=== PATIENT | female | born 1975 | race Caucasian/White ===

== ENCOUNTER 2017-08-12 17:20 | Observation (INO) ==
[2017-08-12] MEDS ORDERED: methylPREDNISolone 125 MG/2 ML VIAL IVP ONE (17:59)
[2017-08-12] MEDS ORDERED: Ipratropium/Albuterol Neb 3 ML IH ONE (17:59)
--- NOTE | 2017-08-12 18:02 | Emergency Department Note ---
Disposition Clinical Impression: Chest pain Qualifiers: Chest pain type: unspecified Qualified Code(s): R07.9 - Chest pain, unspecified COPD (chronic obstructive pulmonary disease) Qualifiers: COPD type: unspecified COPD Qualified Code(s): J44.9 - Chronic obstructive pulmonary disease, unspecified Disposition: Still a Patient Referrals: Lita Rojas [Primary Care Provider] - Forms: ED Satisfaction Letter General Adult HPI - General Chief complaint: ED Upper Respiratory Infection Stated complaint: URI symptoms since friday Time Seen by Provider: 08/12/17 17:31 Source: patient Mode of arrival: ambulatory Limitations: no limitations Nursing Notes Reviewed: Yes Vital Signs Reviewed: Yes - History of Present Illness HPI Narrative: 41-year-old who has a history DVT and COPD with cough congestion states she has also had pain across the top of her chest. Patient is on Coumadin though blood thinner. Patient presents now for evaluation. Pt Subjective Complaint: Chest pain dyspnea Onset (ago): day(s) Location: chest Radiation: non-radiation Pain Severity: moderate Pain Scale: 8 Improves with: nothing Associated symptoms: Reports: chest pain, cough, fever/chills - Related Data Home Medications Medication Instructions Recorded Confirmed Cyanocobalamin (Vitamin B-12) 1,000 mcg PO DAILY 10/09/15 03/04/16 [Vitamin B-12] Iron Ps Cmplx/Vit B12/FA 1 cap PO DAILY 03/03/16 03/04/16 [Poly-Iron 150 Forte Capsule] Tizanidine HCl 4 mg PO Q8H PRN 03/04/16 03/04/16 Warfarin [Coumadin] 3.5 mg PO Q48H 03/04/16 03/04/16 Warfarin [Coumadin] 4 mg PO Q48H 03/04/16 03/04/16 Previous Rx's Medication Instructions Recorded Omeprazole 20 mg PO DAILY #30 tablet. 10/11/15 Acetaminophen [Tylenol] 500 mg PO Q6HR PRN #20 tablet 12/27/16 Cyclobenzaprine [Flexeril] 10 mg PO TID PRN #15 tablet 12/27/16 Lidocaine Patch [Lidoderm 5% patch] 1 each TP DAILY PRN #14 adh..patch 12/27/16 Guaifenesin [Mucinex] 600 mg PO BID #30 tab.er.12h 03/13/17 Ipratropium/Albuterol Neb [Duoneb] 3 ml IH Q6HR #30 vial.neb 03/13/17 Nebulizer [Aeroeclipse] 1 each MC Q6HR #1 each 03/13/17 levoFLOXacin [Levaquin] 750 mg PO DAILY #7 tablet 03/13/17 Allergies Allergy/AdvReac Type Severity Reaction Status Date / Time doxycycline Allergy Hives Verified 08/12/17 17:24 Sulfa (Sulfonamide Allergy Hives Verified 08/12/17 17:24 Antibiotics) tramadol Allergy Hives Verified 08/12/17 17:24 All systems ED: reviewed and negative except as stated. Constitutional: Denies: fever, chills, weakness, weight change Eyes: Denies: eye pain, eye discharge, vision change ENT ED: Denies: ear pain, throat pain, dental pain, hearing loss, epistaxis, congestion, dysphagia Cardiovascular: Reports: chest pain. Denies: palpitations, dyspnea on exertion , edema, syncope Respiratory: Reports: cough, dyspnea. Denies: wheezes, hemoptysis, stridor Gastrointestinal: Denies: abdominal pain, nausea, vomiting, diarrhea, constipation, hematemesis, melena, hematochezia Genitourinary: Denies: dysuria, frequency, hematuria, discharge Musculoskeletal: Denies: back pain, neck pain, arthralgia, myalgia Integumentary: Denies: rash, abrasion, lesions Neurological: Denies: headache, weakness, numbness, paresthesias, confusion, abnormal gait, vertigo Psychiatric: Denies: anxiety, depression, suicidal thoughts, homicidal thoughts , auditory hallucinations, visual hallucinations Endocrine: Denies: fatigue Hematological/Lymphatic: Denies: easy bleeding, easy bruising Allergic/Immunologic: Denies: facial swelling, urticaria Past Medical History - Past Medical History Medical history: Reports: COPD, DVT, fibromyalgia Surgical history: Reports: other Psychiatric history: Reports: anxiety, depression 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 - Social History Smoking Status: Current every day smoker Smokeless Tobacco Status: No Alcohol use: Reports: none Drug use: Reports: marijuana Physical Exam - General Limitations: no limitations General appearance: alert, in no apparent distress - Head Head exam: atraumatic, normocephalic, normal inspection - Eye Eye exam: Present: normal appearance, PERRL, EOMI - ENT ENT exam: normal exam, normal oropharynx, mucous membranes moist - Neck Neck exam: Present: normal inspection, full ROM, trachea midline Course Vital Signs Temperature 97.6 F 08/12/17 17:21 Pulse Rate 113 08/12/17 17:21 Respiratory Rate 16 08/12/17 17:21 Blood Pressure 123/87 08/12/17 17:21 O2 Sat by Pulse Oximetry 96 08/12/17 17:21 Temperature 97.6 F 08/12/17 17:21 Pulse Rate 113 08/12/17 17:21 Respiratory Rate 16 08/12/17 17:21 Blood Pressure 123/87 08/12/17 17:21 O2 Sat by Pulse Oximetry 96 08/12/17 17:21 Oxygen Delivery Oxygen Delivery Room Air S.B.A.R. - S.B.A.R. Recommendation: Recommendation based on pending studies, treatments, or consults S.B.A.RVanda Report Given to: Dr. Nicole Colorado[place]um Repor Time: 19:00
[2017-08-12 18:30] LABS: Basophils % 0.3 %; Eosinophils # 0.2 K/mcL (0.0-0.6); Hemoglobin 12.4 g/dL (11.5-15.4); Immature Granulocytes % 0.2 % (0-4); Lymphocytes # 1.3 K/mcL (0.6-4.6); Lymphocytes % 19.9 %; Mean Corpuscular HGB Conc 33.5 g/dL (31.6-35.5); Mean Corpuscular Hemoglobin 33.3 pg (28.0-33.3); Mean Corpuscular Volume 99.5 fL (83.0-100.0); Mean Platelet Volume 8.7 fL (9.4-12.4); Monocytes # 0.4 K/mcL (0.0-1.3); Monocytes % 6.5 %; Neutrophils # 4.4 K/mcL (1.6-8.9); Platelet Count 278 K/mcL (140-400); Red Blood Count 3.72 M/mcL (3.82-4.97); Red Cell Distribution Width 14.2 % (11.5-14.5); Segmented Neutrophils % 70.1 %
[2017-08-12] MEDS ORDERED: cefTRIAXone 1,000 MG in Water for inj. (sterile) 20 ML 10 ML IVP ONE (19:14)
[2017-08-12 20:02] LABS: BUN/Creatinine Ratio 9 (6-26); Blood Urea Nitrogen 5 mg/dL (6-20); Calcium 8.5 mg/dL (8.6-10.3); Carbon Dioxide 23 mEq/L (23-29); Chloride 104 mEq/L (98-107); Glucose 115 mg/dL (70-105); Osmolality,Calculated 274 (280-300); Potassium 4.1 mEq/L (3.5-5.1); Sodium 133 mEq/L (136-145); eGFR For African Americans > 60 (> 60); eGFR For Non-African Americans > 60 (> 60)
[2017-08-12] MEDS ORDERED: 0.9 % Sodium Chloride 1,000 ML IVC ONE (20:39)
[2017-08-12] MEDS ORDERED: Azithromycin 500 MG in D5% in Water 250 ML IVPB ONE (20:39)
[2017-08-12] MEDS ORDERED: *HR* Warfarin 3 MG TABLET PO ONE (20:40)
--- NOTE | 2017-08-12 20:44 | Emergency Department Note ---
Disposition Clinical Impression: Multifocal pneumonia Chest pain Qualifiers: Chest pain type: unspecified Qualified Code(s): R07.9 - Chest pain, unspecified COPD (chronic obstructive pulmonary disease) Qualifiers: COPD type: unspecified COPD Qualified Code(s): J44.9 - Chronic obstructive pulmonary disease, unspecified Disposition: Admitted As Inpatient Condition: Undetermined Referrals: Lita Rojas [Primary Care Provider] - Forms: ED Satisfaction Letter Time of Disposition: 20:49 General Adult HPI - General Chief complaint: ED Upper Respiratory Infection Stated complaint: URI symptoms since friday Time Seen by Provider: 08/12/17 17:31 Source: patient Mode of arrival: ambulatory Limitations: no limitations Nursing Notes Reviewed: Yes Vital Signs Reviewed: Yes - History of Present Illness HPI Narrative: 41-year-old female with history of DVT on warfarin, history of COPD, arrives to the emergency department complaining of shortness of breath and upper respiratory infection like symptoms. This patient was a sign out from the day team. The patient was noted to have a left lower lobe pneumonia on chest x- ray. A CTA of the chest and treated no pulmonary embolism but does note multifocal pneumonia with tree in blood appearance. The patient was mildly hypoxic and was dyspneic. After discussion with the patient, we will admit the patient to the hospital with administration of azithromycin and Rocephin. The patient made aware and agrees to plan. No further questions or concerns at this time. Location: chest Pain Scale: 0 Improves with: nothing Associated symptoms: Reports: chest pain, cough, fever/chills - Related Data Home Medications Medication Instructions Recorded Confirmed Cyanocobalamin (Vitamin B-12) 1,000 mcg PO DAILY 10/09/15 03/04/16 [Vitamin B-12] Iron Ps Cmplx/Vit B12/FA 1 cap PO DAILY 03/03/16 03/04/16 [Poly-Iron 150 Forte Capsule] Tizanidine HCl 4 mg PO Q8H PRN 03/04/16 03/04/16 Warfarin [Coumadin] 3.5 mg PO Q48H 03/04/16 03/04/16 Warfarin [Coumadin] 4 mg PO Q48H 03/04/16 03/04/16 Previous Rx's Medication Instructions Recorded Omeprazole 20 mg PO DAILY #30 tablet. 10/11/15 Acetaminophen [Tylenol] 500 mg PO Q6HR PRN #20 tablet 12/27/16 Cyclobenzaprine [Flexeril] 10 mg PO TID PRN #15 tablet 12/27/16 Lidocaine Patch [Lidoderm 5% patch] 1 each TP DAILY PRN #14 adh..patch 12/27/16 Guaifenesin [Mucinex] 600 mg PO BID #30 tab.er.12h 03/13/17 Ipratropium/Albuterol Neb [Duoneb] 3 ml IH Q6HR #30 vial.neb 03/13/17 Nebulizer [Aeroeclipse] 1 each MC Q6HR #1 each 03/13/17 levoFLOXacin [Levaquin] 750 mg PO DAILY #7 tablet 03/13/17 Allergies Allergy/AdvReac Type Severity Reaction Status Date / Time doxycycline Allergy Hives Verified 08/12/17 17:24 Sulfa (Sulfonamide Allergy Hives Verified 08/12/17 17:24 Antibiotics) tramadol Allergy Hives Verified 08/12/17 17:24 All systems ED: reviewed and negative except as stated. Constitutional: Denies: fever, chills, weakness, weight change Eyes: Denies: eye pain, eye discharge, vision change ENT ED: Denies: ear pain, throat pain, dental pain, hearing loss, epistaxis, congestion, dysphagia Cardiovascular: Reports: chest pain. Denies: palpitations, dyspnea on exertion , edema, syncope Respiratory: Reports: cough, dyspnea. Denies: wheezes, hemoptysis, stridor Gastrointestinal: Denies: abdominal pain, nausea, vomiting, diarrhea, constipation, hematemesis, melena, hematochezia Genitourinary: Denies: dysuria, frequency, hematuria, discharge Musculoskeletal: Denies: back pain, neck pain, arthralgia, myalgia Integumentary: Denies: rash, abrasion, lesions Neurological: Denies: headache, weakness, numbness, paresthesias, confusion, abnormal gait, vertigo Psychiatric: Denies: anxiety, depression, suicidal thoughts, homicidal thoughts , auditory hallucinations, visual hallucinations Endocrine: Denies: fatigue Hematological/Lymphatic: Denies: easy bleeding, easy bruising Allergic/Immunologic: Denies: facial swelling, urticaria Past Medical History - Past Medical History Attestation: Yes The following information was validated with the patient. 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 - Social History Smoking Status: Current every day smoker Smokeless Tobacco Status: No Alcohol use: Reports: none Drug use: Reports: marijuana Physical Exam - General Limitations: no limitations General appearance: alert, in no apparent distress - Head Head exam: atraumatic, normocephalic, normal inspection - Eye Eye exam: Present: normal appearance, PERRL, EOMI - ENT ENT exam: normal exam, normal oropharynx, mucous membranes moist - Neck Neck exam: Present: normal inspection, full ROM, trachea midline - Chest Chest inspection: Present: normal inspection, symmetric chest wall rise - Respiratory Respiratory exam: Present: other (Coarse breath sounds bilaterally) - Cardiovascular Cardiovascular exam: Present: normal rhythm, tachycardia, normal heart sounds - Abdominal Exam Abdominal exam: Present: soft, Non-Tender. Absent: tenderness, distention, guarding, rebound, rigidity - Extremities Exam Extremities exam: Present: normal inspection, full ROM. Absent: tenderness, pedal edema Course Vital Signs Temperature 97.6 F 08/12/17 17:21 Pulse Rate 113 08/12/17 17:21 Respiratory Rate 16 08/12/17 17:21 Blood Pressure 123/87 08/12/17 17:21 O2 Sat by Pulse Oximetry 96 08/12/17 17:21 Temperature 98.3 F 08/12/17 19:53 Pulse Rate 99 08/12/17 19:53 Respiratory Rate 18 08/12/17 19:53 Blood Pressure 118/80 08/12/17 19:53 O2 Sat by Pulse Oximetry 95 08/12/17 19:53 Oxygen Delivery Oxygen Delivery Room Air Medical Decision Making - MDM Narrative Medical decision making narrative: We will admit the patient to the hospital at this time with IV anabiotic's and further care workup. The patient made aware and agrees to plan. No further questions or concerns noted at this time. Accepted by Dr. Mcnair. - Lab Data Lab results reviewed: Yes I reviewed the patient's lab results. Result diagrams: 08/12/17 18:09 08/12/17 19:33 Lab Results 08/12/17 08/12/17 08/12/17 Range/Units 18:09 18:09 18:09 WBC 6.3 (4.3-11.1) K/mcL RBC 3.72 L (3.82-4.97) M/mcL Hgb 12.4 (11.5-15.4) g/dL Hct 37.0 (35.3-44.9) % MCV 99.5 (83.0-100.0) fL MCH 33.3 (28.0-33.3) pg MCHC 33.5 (31.6-35.5) g/dL RDW 14.2 (11.5-14.5) % Plt Count 278 (140-400) K/mcL MPV 8.7 L (9.4-12.4) fL Immature Gran % 0.2 (0-4) % Seg Neutrophils % 70.1 % Lymphocytes % 19.9 % Monocytes % 6.5 % Eosinophils % 3.0 % Basophils % 0.3 % Neutrophils # 4.4 (1.6-8.9) K/mcL Lymphocytes # 1.3 (0.6-4.6) K/mcL Monocytes # 0.4 (0.0-1.3) K/mcL Eosinophils # 0.2 (0.0-0.6) K/mcL Basophils # 0.0 (0.0-0.2) K/mcL D-Dimer (0-500) ng/mLFEU Sodium Cancelled Potassium Cancelled Chloride Cancelled Carbon Dioxide Cancelled BUN Cancelled Creatinine Cancelled Est GFR ( Amer) Cancelled Est GFR (Non-Af Amer) Cancelled BUN/Creatinine Ratio Cancelled Glucose Cancelled Calculated Osmolality Cancelled Lactic Acid 1.1 (0.5-2.2) mmol/L Calcium Cancelled Troponin I < 0.03 (< 0.04) ng/mL Specimen Rejected 08/12/17 08/12/17 08/12/17 Range/Units 18:09 18:27 19:33 WBC (4.3-11.1) K/mcL RBC (3.82-4.97) M/mcL Hgb (11.5-15.4) g/dL Hct (35.3-44.9) % MCV (83.0-100.0) fL MCH (28.0-33.3) pg MCHC (31.6-35.5) g/dL RDW (11.5-14.5) % Plt Count (140-400) K/mcL MPV (9.4-12.4) fL Immature Gran % (0-4) % Seg Neutrophils % % Lymphocytes % % Monocytes % % Eosinophils % % Basophils % % Neutrophils # (1.6-8.9) K/mcL Lymphocytes # (0.6-4.6) K/mcL Monocytes # (0.0-1.3) K/mcL Eosinophils # (0.0-0.6) K/mcL Basophils # (0.0-0.2) K/mcL D-Dimer 393 (0-500) ng/mLFEU Sodium 133 L Potassium 4.1 Chloride 104 Carbon Dioxide 23 BUN 5 L Creatinine 0.54 L Est GFR ( Amer) > 60 Est GFR (Non-Af Amer) > 60 BUN/Creatinine Ratio 9 Glucose 115 H Calculated Osmolality 274 L Lactic Acid (0.5-2.2) mmol/L Calcium 8.5 L Troponin I (< 0.04) ng/mL Specimen Rejected Hemolyzed - Radiology Data Radiology results reviewed: Yes I reviewed the patient's radiology results. Chest X-Ray 08/12/17 17:25 IMPRESSION: Left lower lobe pneumonia. Follow-up is recommended to ensure resolution D/ / Elías Oneil MD / Elías Oneil MD Interpreting Provider: Elías Oneil MD Chest CTA 08/12/17 18:36 IMPRESSION: 1. No evidence of acute pulmonary embolism. 2. Bilateral ground-glass opacities and tree-in-bud nodularity consistent with multifocal pneumonia, likely atypical. D/ / Jennifer Morales MD / Jennifer Morales MD Interpreting Provider: Jennifer Morales MD
--- NOTE | 2017-08-12 20:49 | Emergency Department Note ---
Disposition Clinical Impression: Multifocal pneumonia Chest pain Qualifiers: Chest pain type: unspecified Qualified Code(s): R07.9 - Chest pain, unspecified COPD (chronic obstructive pulmonary disease) Qualifiers: COPD type: unspecified COPD Qualified Code(s): J44.9 - Chronic obstructive pulmonary disease, unspecified Disposition: Admitted As Inpatient Condition: Undetermined Referrals: Lita Rojas [Primary Care Provider] - Forms: ED Satisfaction Letter General Adult HPI - General Chief complaint: ED Upper Respiratory Infection Stated complaint: URI symptoms since friday Time Seen by Provider: 08/12/17 17:31 Source: patient Mode of arrival: ambulatory Limitations: no limitations - History of Present Illness Location: chest Pain Scale: 0 Improves with: nothing Associated symptoms: Reports: chest pain, cough, fever/chills - Related Data Home Medications Medication Instructions Recorded Confirmed Cyanocobalamin (Vitamin B-12) 1,000 mcg PO DAILY 10/09/15 03/04/16 [Vitamin B-12] Iron Ps Cmplx/Vit B12/FA 1 cap PO DAILY 03/03/16 03/04/16 [Poly-Iron 150 Forte Capsule] Tizanidine HCl 4 mg PO Q8H PRN 03/04/16 03/04/16 Warfarin [Coumadin] 3.5 mg PO Q48H 03/04/16 03/04/16 Warfarin [Coumadin] 4 mg PO Q48H 03/04/16 03/04/16 Previous Rx's Medication Instructions Recorded Omeprazole 20 mg PO DAILY #30 tablet. 10/11/15 Acetaminophen [Tylenol] 500 mg PO Q6HR PRN #20 tablet 12/27/16 Cyclobenzaprine [Flexeril] 10 mg PO TID PRN #15 tablet 12/27/16 Lidocaine Patch [Lidoderm 5% patch] 1 each TP DAILY PRN #14 adh..patch 12/27/16 Guaifenesin [Mucinex] 600 mg PO BID #30 tab.er.12h 03/13/17 Ipratropium/Albuterol Neb [Duoneb] 3 ml IH Q6HR #30 vial.neb 03/13/17 Nebulizer [Aeroeclipse] 1 each MC Q6HR #1 each 03/13/17 levoFLOXacin [Levaquin] 750 mg PO DAILY #7 tablet 10/26/17 Allergies Allergy/AdvReac Type Severity Reaction Status Date / Time doxycycline Allergy Hives Verified 08/12/17 17:24 Sulfa (Sulfonamide Allergy Hives Verified 08/12/17 17:24 Antibiotics) tramadol Allergy Hives Verified 08/12/17 17:24 Constitutional: Denies: fever, chills, weakness, weight change Eyes: Denies: eye pain, eye discharge, vision change ENT ED: Denies: ear pain, throat pain, dental pain, hearing loss, epistaxis, congestion, dysphagia Cardiovascular: Reports: chest pain. Denies: palpitations, dyspnea on exertion , edema, syncope Respiratory: Reports: cough, dyspnea. Denies: wheezes, hemoptysis, stridor Gastrointestinal: Denies: abdominal pain, nausea, vomiting, diarrhea, constipation, hematemesis, melena, hematochezia Genitourinary: Denies: dysuria, frequency, hematuria, discharge Musculoskeletal: Denies: back pain, neck pain, arthralgia, myalgia Integumentary: Denies: rash, abrasion, lesions Neurological: Denies: headache, weakness, numbness, paresthesias, confusion, abnormal gait, vertigo Psychiatric: Denies: anxiety, depression, suicidal thoughts, homicidal thoughts , auditory hallucinations, visual hallucinations Endocrine: Denies: fatigue Hematological/Lymphatic: Denies: easy bleeding, easy bruising Allergic/Immunologic: Denies: facial swelling, urticaria Past Medical History - Past Medical History Medical history: Reports: COPD, DVT, fibromyalgia Surgical history: Reports: other Psychiatric history: Reports: anxiety, depression 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 - Social History Smoking Status: Current every day smoker Smokeless Tobacco Status: No Alcohol use: Reports: none Drug use: Reports: marijuana Physical Exam - General Limitations: no limitations General appearance: alert, in no apparent distress Course Vital Signs Temperature 97.6 F 08/12/17 17:21 Pulse Rate 113 08/12/17 17:21 Respiratory Rate 16 08/12/17 17:21 Blood Pressure 123/87 08/12/17 17:21 O2 Sat by Pulse Oximetry 96 08/12/17 17:21 Temperature 98.3 F 08/12/17 19:53 Pulse Rate 99 08/12/17 19:53 Respiratory Rate 18 08/12/17 19:53 Blood Pressure 118/80 08/12/17 19:53 O2 Sat by Pulse Oximetry 95 08/12/17 19:53 Oxygen Delivery Oxygen Delivery Room Air Medical Decision Making - Lab Data Result diagrams: 08/12/17 18:09 08/12/17 19:33 Lab Results 08/12/17 08/12/17 08/12/17 Range/Units 18:09 18:09 18:09 WBC 6.3 (4.3-11.1) K/mcL RBC 3.72 L (3.82-4.97) M/mcL Hgb 12.4 (11.5-15.4) g/dL Hct 37.0 (35.3-44.9) % MCV 99.5 (83.0-100.0) fL MCH 33.3 (28.0-33.3) pg MCHC 33.5 (31.6-35.5) g/dL RDW 14.2 (11.5-14.5) % Plt Count 278 (140-400) K/mcL MPV 8.7 L (9.4-12.4) fL Immature Gran % 0.2 (0-4) % Seg Neutrophils % 70.1 % Lymphocytes % 19.9 % Monocytes % 6.5 % Eosinophils % 3.0 % Basophils % 0.3 % Neutrophils # 4.4 (1.6-8.9) K/mcL Lymphocytes # 1.3 (0.6-4.6) K/mcL Monocytes # 0.4 (0.0-1.3) K/mcL Eosinophils # 0.2 (0.0-0.6) K/mcL Basophils # 0.0 (0.0-0.2) K/mcL D-Dimer (0-500) ng/mLFEU Sodium Cancelled Potassium Cancelled Chloride Cancelled Carbon Dioxide Cancelled BUN Cancelled Creatinine Cancelled Est GFR ( Amer) Cancelled Est GFR (Non-Af Amer) Cancelled BUN/Creatinine Ratio Cancelled Glucose Cancelled Calculated Osmolality Cancelled Lactic Acid 1.1 (0.5-2.2) mmol/L Calcium Cancelled Troponin I < 0.03 (< 0.04) ng/mL Specimen Rejected 08/12/17 08/12/17 08/12/17 Range/Units 18: 18:27 19:33 WBC (4.3-11.1) K/mcL RBC (3.82-4.97) M/mcL Hgb (11.5-15.4) g/dL Hct (35.3-44.9) % MCV (83.0-100.0) fL MCH (28.0-33.3) pg MCHC (31.6-35.5) g/dL RDW (11.5-14.5) % Plt Count (140-400) K/mcL MPV (9.4-12.4) fL Immature Gran % (0-4) % Seg Neutrophils % % Lymphocytes % % Monocytes % % Eosinophils % % Basophils % % Neutrophils # (1.6-8.9) K/mcL Lymphocytes # (0.6-4.6) K/mcL Monocytes # (0.0-1.3) K/mcL Eosinophils # (0.0-0.6) K/mcL Basophils # (0.0-0.2) K/mcL D-Dimer 393 (0-500) ng/mLFEU Sodium 133 L Potassium 4.1 Chloride 104 Carbon Dioxide 23 BUN 5 L Creatinine 0.54 L Est GFR ( Amer) > 60 Est GFR (Non-Af Amer) > 60 BUN/Creatinine Ratio 9 Glucose 115 H Calculated Osmolality 274 L Lactic Acid (0.5-2.2) mmol/L Calcium 8.5 L Troponin I (< 0.04) ng/mL Specimen Rejected Hemolyzed Critical Care Time Critical Care Time: Yes Total Critical Care Time: 35 Attestation: Critical care performed: Time is exclusive of separately billable procedures. Time includes: direct patient care, patient reassessment, coordination of patient care, interpretation of data (laboratory data, radiology data, and respiratory data), review of patient's medical records, medical consultation and documentation of patient care. Procedures included in critical care time: Procedures excluded from critical care time: Attestation Statement - Attestation Attestation: I, Missael Rivera MD, personally evaluated this patient and discussed their management with the resident physician. I reviewed the resident's note and agree with the documented findings, medical decision making, and plan of care. This patient was signed out at shift change from Dr. Paul. Please refer to his note for complete details of the history and physical examination. Patient with history of COPD presented complaining of increased shortness of breath for the past several days associated with a productive cough with thick yellow sputum. Some low-grade fever several days ago. Pruritic bilateral mid and upper chest pain. History of DVT and is on Coumadin. On examination patient is a well-developed well-nourished well-appearing female in no acute distress. She is alert and oriented 3. There is no cyanosis or diaphoresis. Chest is nontender to palpation. Breath sounds are decreased in the bases but no rales or wheezes noted. Heart regular rate and rhythm. Abdomen soft and nontender with normal bowel sounds. Labs reviewed. Lactic acid normal. Blood cultures obtained. Chest x-ray shows a new left lower lobe infiltrate. CTA of the chest obtained and showed no evidence of pulmonary embolism but did show bilateral multifocal pneumonia. Patient received IV Rocephin and azithromycin in the emergency department. The hospitalist, Dr. Mcnair, was consulted and accepted admission of the patient.
[2017-08-12 21:01] LABS: INR 1.7; Prothrombin Time 18.1 Seconds (9.4-12.1)
--- NOTE | 2017-08-12 21:53 | Internal Med History&Physical ---
Date of Encounter: 08/12/17 Time of Encounter: 21:53 Assessment and Plan (1) Multifocal pneumonia Status: Acute SOB due to * COPD exacerbation caused by URTI, *Pneumonia (infiltrate on CXR) PLAN: - Aerosols q 4 hr and PRN SOB - Solu-medrol 40 mg IV q 6 hr - O2 to keep SpO2 higher than 92% (SpO higher than 95% if CAD) - CBCD, BMP in AM - Sputum Gram stain, C+S - Tylenol 650 mg PO q 4-6 hr PRN pain/fever - Home meds - check the list and restart - ABs (2) COPD (chronic obstructive pulmonary disease) Status: Chronic The patient was started on ABs , steroids and Dueneb Qualifiers: COPD type: unspecified COPD Qualified Code(s): J44.9 - Chronic obstructive pulmonary disease, unspecified (3) History of DVT (deep vein thrombosis) Status: Chronic The patient is on chronic anticoagulation with warfarin, we will check PT, INR and adjust dosed accordingly. (4) GERD (gastroesophageal reflux disease) Status: Chronic Qualifiers: Esophagitis presence: esophagitis presence not specified Qualified Code(s) : K21.9 - Gastro-esophageal reflux disease without esophagitis (5) Fibromyalgia Status: Chronic (6) DVT (deep venous thrombosis) Status: Chronic The patient is on chronic anticoagulation with warfarin Qualifiers: DVT location: lower extremity Affected thrombotic vein of extremity: unspecified vein of extremity Chronicity: chronic Laterality: bilateral Qualified Code(s): I82.503 - Chronic embolism and thrombosis of unspecified deep veins of lower extremity, bilateral Internal Medicine - H&P: HPI Chief complaint: SOB History of present illness: Ms. Andrew is a 41 year old female with history of DVT on warfarin, history of COPD, arrives to the emergency department complaining of shortness of breath and cough. In the ER , it was noted that The patient was mildly hypoxic and was dyspneic. Her Chest X ray revealed left lower lobe pneumonia on chest x- ray. A CTA of the chest revealed no pulmonary embolism and confirm multifocal pneumonia. The patient was admitted for further evaluation and management. Past Med Surg Social Fam HX - Past Medical History Medical history: COPD, DVT, fibromyalgia Psychiatric history: anxiety, depression - Past Surgical History Surgical History: other - Social History Smoking Status: Current every day smoker Smokeless Tobacco Status: No Alcohol use: none Drug use: marijuana - Family History Mother Living Status: Still Living Hx Family Cardiac Disorders: (NM) Hx Family Endocrine Disorder: (DM, Thyroid) Internal Medicine - H&P: Meds Cyanocobalamin (Vitamin B-12) [Vitamin B-12] 1,000 mcg PO DAILY 10/09/15 [ History] Iron Ps Cmplx/Vit B12/FA [Poly-Iron 150 Forte Capsule] 1 cap PO DAILY 03/03/16 [ History] Cyclobenzaprine [Flexeril] 10 mg PO TID 08/12/17 [History] Warfarin [Coumadin] 3 mg PO WEFR 08/12/17 [History] Warfarin [Coumadin] 4.5 mg PO SUMOTUTHSA 08/12/17 [History] Azithromycin [Zithromax] 250 mg PO Q24H 4 Days #4 tablet 08/14/17 [Rx] Cefdinir [Omnicef] 300 mg PO BID 7 Days #14 capsule 08/14/17 [Rx] predniSONE [PredniSONE] See Taper PO DAILY 12 Days #30 tablet 08/14/17 [Rx] 3 Allergy/AdvReac Type Severity Reaction Status Date / Time doxycycline Allergy Hives Verified 08/12/17 17:24 Sulfa (Sulfonamide Allergy Hives Verified 08/12/17 17:24 Antibiotics) tramadol Allergy Hives Verified 08/12/17 17:24 All Systems PM: A 10-system review of systems was performed and is negative for pertinent findings except as documented above in the HPI. - Constitutional Constitutional: fatigue, malaise, no chills, no fever(s), no night sweats - EENT Eyes: no change in vision, no discharge, no pain, no photophobia - Cardiovascular Cardiovascular ROS IM: dyspnea, no chest pain, no diaphoresis, no lightheadedness, no palpitations, no syncope - Gastrointestinal Gastrointestinal: no abdominal pain, no diarrhea, no hematemesis, no hematochezia, no melena, no nausea, no vomiting - Genitourinary Genitourinary: no change in urinary stream, no dysuria, no flank pain, no hematuria - Neurological Neurological ROS: no confusion, no convulsions, no focal weakness, no numbness, no tingling, no tremor(s) - Constitutional Vitals: Temp Pulse Resp BP Pulse Ox 98.1 F 93 16 114/77 96 08/12/17 21:46 08/12/17 21:46 08/12/17 21:46 08/12/17 21:46 08/12/17 21:46 General appearance: Present: A&O X 3, no acute distress - Head Head exam: Present: atraumatic, normocephalic - Eye Eye exam: Present: PERRL, conjuntiva pink, sclera anicteric Pupils: Present: PERRL - Neck Neck exam general surgery: Present: supple, trachea midline. Absent: lymphadenopathy - Respiratory Respiratory exam: Present: decreased breath sounds, wheezes. Absent: accessory muscle use, rales, rhonchi - Cardiovascular Cardiovascular exam: Present: RRR, +S1, +S2. Absent: diastolic murmur, gallop, rubs, systolic murmur - GI/Abdominal GI/Abdominal exam: Present: normal bowel sounds, soft, no peritoneal signs. Absent: distended, tenderness - Extremities Exam Extremities exam: Present: warm, radial pulses palpable and symmetrical. Absent : calf tenderness, cyanotic, pedal edema Internal Med - H&P Results - Labs CBC & Chem 7: 08/13/17 04:00 08/13/17 03:59
[2017-08-12] MEDS ORDERED: Acetaminophen 325 MG TABLET PO PRN (22:10)
[2017-08-12] MEDS ORDERED: Naloxone 0.4 MG/ML INJ IVP PRN (22:12)
[2017-08-12 23:53] LABS: Influenza A PCR Negative (Negative); Influenza B PCR Negative (Negative); Resp. Syncytial Virus PCR Negative (Negative)
[2017-08-13] MEDS: 0.9 % Sodium Chloride 1,000 ML IVC SCH ×2 (03:16→12:22)
[2017-08-13 04:33] LABS: Basophils % 0.2 %; Hematocrit 32.5 % (35.3-44.9); Immature Granulocytes % 0.6 % (0-4); Lymphocytes # 0.6 K/mcL (0.6-4.6); Lymphocytes % 9.6 %; Mean Corpuscular HGB Conc 33.2 g/dL (31.6-35.5); Mean Corpuscular Hemoglobin 33.3 pg (28.0-33.3); Mean Corpuscular Volume 100.3 fL (83.0-100.0); Mean Platelet Volume 8.3 fL (9.4-12.4); Monocytes # 0.1 K/mcL (0.0-1.3); Monocytes % 1.2 %; Neutrophils # 5.8 K/mcL (1.6-8.9); Platelet Count 303 K/mcL (140-400); Red Blood Count 3.24 M/mcL (3.82-4.97); Red Cell Distribution Width 14.1 % (11.5-14.5); Segmented Neutrophils % 88.4 %
[2017-08-13 04:34] LABS: INR 1.7; Prothrombin Time 18.4 Seconds (9.4-12.1)
[2017-08-13 04:37] LABS: Activated Partial Thrombo Time 30.5 Seconds (26.0-36.0)
[2017-08-13 04:41] LABS: Hemoglobin 10.8 g/dL (11.5-15.4)
[2017-08-13 04:48] LABS: Alanine Aminotransferase 16 Units/L (7-52); Albumin 3.3 g/dL (3.5-5.7); Albumin/Globulin Ratio 0.7 (1.1-2.2); Alkaline Phosphatase 73 Units/L (34-104); Aspartate Amino Transferase 23 Units/L (13-39); BUN/Creatinine Ratio 20 (6-26); Bilirubin,Total 0.2 mg/dL (0.3-1.0); Blood Urea Nitrogen 10 mg/dL (6-20); Calcium 7.9 mg/dL (8.6-10.3); Carbon Dioxide 21 mEq/L (23-29); Chloride 106 mEq/L (98-107); Glucose 167 mg/dL (70-105); Osmolality,Calculated 277 (280-300); Potassium 3.9 mEq/L (3.5-5.1); Sodium 132 mEq/L (136-145); Total Protein 8.3 g/dL (6.4-8.9); eGFR For African Americans > 60 (> 60); eGFR For Non-African Americans > 60 (> 60)
[2017-08-13] MEDS ORDERED: Albuterol 2.5 MG/3 ML NEBULIZER IH PRN (07:44)
[2017-08-13] MEDS: Cyanocobalamin (B-12) 1,000 MCG TABLET PO SCH (08:13)
[2017-08-13] MEDS: Iron Polysaccharide Complex 150 MG CAPSULE PO SCH (08:13)
--- NOTE | 2017-08-13 09:29 | Internal Med Progress Note ---
Date of Encounter: 08/13/17 Time of Encounter: 09:27 - Assessment and plan (1) Multifocal pneumonia Current Visit: Yes Status: Acute Assessment and plan: Improving. Continue azithromycin and rocephin. Continue supplemental O2 PRN. Continue duonebs Q6H and albuterol nebs Q4H PRN. Continue solumedrol 40 mg IV Q6H; transition to PO prednisone tomorrow with continued improvement. (2) COPD (chronic obstructive pulmonary disease) Current Visit: Yes Status: Chronic Assessment and plan: Continue antibiotics, steroids, PRN supplemental O2, and nebulizer treatments as per above. Qualifiers: COPD type: unspecified COPD Qualified Code(s): J44.9 - Chronic obstructive pulmonary disease, unspecified (3) DVT (deep venous thrombosis) Current Visit: Yes Status: Chronic Assessment and plan: History of DVT. On coumadin. Pharmacy managing. Qualifiers: DVT location: lower extremity Chronicity: chronic Laterality: bilateral Qualified Code(s): I82.503 - Chronic embolism and thrombosis of unspecified deep veins of lower extremity, bilateral (4) Fibromyalgia Current Visit: Yes Status: Chronic (5) GERD (gastroesophageal reflux disease) Current Visit: Yes Status: Chronic Qualifiers: Esophagitis presence: esophagitis presence not specified Qualified Code(s) : K21.9 - Gastro-esophageal reflux disease without esophagitis (6) DVT prophylaxis Current Visit: Yes Status: Acute Assessment and plan: On coumadin. Pharmacy managing. - Time Spent With Patient less than 15 minutes - Subjective Interval history: Patient had no acute events overnight after admission. She states that she is feeling better this AM. She states SOB improved. Nursing staff reports patient going out to smoke. She denies chest pain, fever, or chills. She has no new complaints. - Constitutional Vitals: Temp Pulse Resp BP Pulse Ox 97.7 F 62 16 125/84 97 08/13/17 07:29 08/13/17 07:29 08/13/17 07:29 08/13/17 07:29 08/13/17 07:29 General appearance: Present: A&O X 3, no acute distress, answers questions appropriately - Respiratory Respiratory exam: Absent: accessory muscle use, rales, rhonchi, wheezes Additional comments: Mildly labored WOB, coarse breath sounds bilaterally - Cardiovascular Cardiovascular exam: Present: RRR, +S1, +S2. Absent: diastolic murmur, gallop, rubs, systolic murmur Additional comments: No BLE edema - GI/Abdominal GI/Abdominal exam: Present: normal bowel sounds, soft. Absent: distended, hepatomegaly, mass, splenomegaly, tenderness - Psychiatric Psychiatric exam: Present: normal affect, normal mood. Absent: anxious, depressed - Skin Skin exam: Present: dry, intact, warm. Absent: cyanosis, rash Internal Medicine: Result - Labs CBC & Chem 7: 08/13/17 04:00 08/13/17 03:59 Labs: Short CBC 08/13/17 Range/Units 04:00 WBC 6.6 (4.3-11.1) K/mcL Hgb 10.8 L D (11.5-15.4) g/dL Hct 32.5 L (35.3-44.9) % Plt Count 303 (140-400) K/mcL Neutrophils # 5.8 (1.6-8.9) K/mcL BMP 08/13/17 03:59 Sodium 132 L Potassium 3.9 Chloride 106 Carbon Dioxide 21 L BUN 10 Creatinine 0.51 L Glucose 167 H Calcium 7.9 L Cardiac Enzymes 08/12/17 08/13/17 Range/Units 22:41 03:59 Troponin I < 0.03 < 0.03 (< 0.04) ng/mL Liver Function 08/13/17 Range/Units 03:59 Total Bilirubin 0.2 L (0.3-1.0) mg/dL AST 23 (13-39) Units/L ALT 16 (7-52) Units/L Alkaline Phosphatase 73 (34-104) Units/L Albumin 3.3 L (3.5-5.7) g/dL - ABG Interpretation ABG results: PT/INR, D-dimer PT 18.4 Seconds (9.4-12.1) H 08/13/17 03:59 D-Dimer 393 ng/mLFEU (0-500) 08/12/17 18:27 Consult Discharge Plan - Plan Referrals: Lita Rojas [Primary Care Provider] -
[2017-08-13 09:38] LABS: Bilirubin,Urine Negative (Negative); Blood,Urine Moderate (Negative); Clarity,Urine Clear (Clear); Color,Urine Yellow (Yellow); Glucose,Urine (UA) Normal (Normal); Ketones,Urine Negative (Negative); Leukocyte Esterase,Urine Negative (Negative); Nitrite,Urine Negative (Negative); Protein,Urine 30 mg/dL (Neg-Trace); Specific Gravity,Urine > 1.030 (1.010-1.025); Urobilinogen,Urine Normal (Normal)
[2017-08-13 09:40] LABS: Bacteria,Urine None Seen per hpf (None-Few); Hyaline Casts,Urine None Seen per lpf (None-Few); RBC,Urine 15-30 per hpf (0-3); Squamous Epithelial Cell,Urine Many per lpf (None-Few); WBC,Urine 0-3 per hpf (0-3)
[2017-08-13] MEDS: Ipratropium/Albuterol Neb 3 ML IH SCH ×3 (11:00→22:55)
[2017-08-13] MEDS: MethylPREDNISolone 40 MG/ML VIAL IVP SCH ×2 (12:22→16:06)
[2017-08-13] MEDS ORDERED: *HR* Warfarin 3 MG TABLET PO SCH (18:00)
[2017-08-13] MEDS ORDERED: *HR* Warfarin 3 MG TABLET PO ONE (18:00)
[2017-08-13] MEDS ORDERED: Warfarin perPT PO SCH (18:00)
[2017-08-13] MEDS ORDERED: Nicotine 2 MG GUM BC PRN (20:15)
[2017-08-13] MEDS ORDERED: Azithromycin 500 MG in D5% in Water 250 ML IVPB SCH (21:00)
[2017-08-13] MEDS ORDERED: cefTRIAXone 1,000 MG in Water for inj. (sterile) 20 ML 10 ML IVP SCH (21:00)
[2017-08-14] MEDS: MethylPREDNISolone 40 MG/ML VIAL IVP SCH ×3 (00:24→11:09)
[2017-08-14] MEDS: Ipratropium/Albuterol Neb 3 ML IH SCH ×2 (04:37→11:00)
[2017-08-14 05:09] LABS: INR 2.7
[2017-08-14] MEDS: Cyanocobalamin (B-12) 1,000 MCG TABLET PO SCH (07:40)
[2017-08-14] MEDS: Iron Polysaccharide Complex 150 MG CAPSULE PO SCH (07:40)
[2017-08-14 11:38] VITALS: BP 114/69
--- NOTE | 2017-08-14 13:33 | Internal Med Progress Note ---
Date of Encounter: 08/14/17 Time of Encounter: 13:29 - Assessment and plan (1) Multifocal pneumonia Current Visit: Yes Status: Acute (2) COPD (chronic obstructive pulmonary disease) Current Visit: Yes Status: Chronic Qualifiers: COPD type: unspecified COPD Qualified Code(s): J44.9 - Chronic obstructive pulmonary disease, unspecified (3) DVT (deep venous thrombosis) Current Visit: Yes Status: Chronic Qualifiers: DVT location: lower extremity Chronicity: chronic Laterality: bilateral Qualified Code(s): I82.503 - Chronic embolism and thrombosis of unspecified deep veins of lower extremity, bilateral (4) Fibromyalgia Current Visit: Yes Status: Chronic (5) GERD (gastroesophageal reflux disease) Current Visit: Yes Status: Chronic Qualifiers: Esophagitis presence: esophagitis presence not specified Qualified Code(s) : K21.9 - Gastro-esophageal reflux disease without esophagitis (6) DVT prophylaxis Current Visit: Yes Status: Acute - Subjective Interval history: Patient had no acute events overnight after admission. She states that she is feeling better this AM. She states SOB improved. Nursing staff reports patient going out to smoke. She denies chest pain, fever, or chills. She has no new complaints. - Constitutional Vitals: Temp Pulse Resp BP Pulse Ox 98.3 F 82 18 114/69 96 08/14/17 11:37 08/14/17 11:37 08/14/17 11:37 08/14/17 11:37 08/14/17 11:37 General appearance: Present: A&O X 3, no acute distress, answers questions appropriately Internal Medicine: Result - Labs CBC & Chem 7: 08/13/17 04:00 08/13/17 03:59 - ABG Interpretation ABG results: PT/INR, D-dimer PT 30.0 Seconds (9.4-12.1) H D 08/14/17 04:42 D-Dimer 393 ng/mLFEU (0-500) 08/12/17 18:27 Consult Discharge Plan - Plan Referrals: Lita Rojas [Primary Care Provider] -
--- NOTE | 2017-08-14 13:35 | Discharge Summary ---
- NOTES TO OUTPATIENT PROVIDER Notes to Outpatient Provider: Follow up with PCP in 2-3 days after discharge. Follow up with anticoagulation clinic in 2-3 days after discharge. Coumadin dose can be adjusted at that time if necessary. Orders not resulted at time of discharge: Pending orders 08/13/17 04:00 Culture,Sputum with Gram Stain [RM] AM 0400 08/15/17 04:00 INR/PT [Prothrombin Time INR] [COAG] AM 0400 08/16/17 04:00 INR/PT [Prothrombin Time INR] [COAG] AM 0400 Date of Encounter: 08/14/17 Time of Encounter: 13:33 - Discharge Diagnosis (1) Multifocal pneumonia Priority: Primary Status: Acute (2) COPD (chronic obstructive pulmonary disease) Priority: Secondary Status: Chronic Qualifiers: COPD type: unspecified COPD Qualified Code(s): J44.9 - Chronic obstructive pulmonary disease, unspecified (3) DVT (deep venous thrombosis) Priority: Secondary Status: Chronic Qualifiers: DVT location: lower extremity Chronicity: chronic Laterality: bilateral Qualified Code(s): I82.503 - Chronic embolism and thrombosis of unspecified deep veins of lower extremity, bilateral (4) Fibromyalgia Priority: Secondary Status: Chronic (5) GERD (gastroesophageal reflux disease) Priority: Secondary Status: Chronic Qualifiers: Esophagitis presence: esophagitis presence not specified Qualified Code(s) : K21.9 - Gastro-esophageal reflux disease without esophagitis (6) DVT prophylaxis Priority: Secondary Status: Acute Hospital course: Ms. Andrew is a 41 year old female admitted for multifocal pneumonia and COPD exacerbation. She was admitted to general medical floor with telemetry. She was started on IV azithromycin and IV rocephin. She was started on methylprednisolone 40 mg IV Q6H. She was improved the morning after admission, but still not back to baseline. She received duonebs and supplemental O2 PRN. She was weaned to room air on the day of discharge without any SOB. Nursing staff noted her going out to smoke. She states that she is back to baseline and ready to go home. She had subtherapeutic INR upon admission, and pharmacy managed coumadin. INR was therapeutic on day of discharge. She will be discharged home with prednisone taper, 4 more days of azithromycin 250 mg QD, and 7 more days of omnicef 300 mg BID. She will follow up with PCP in 2-3 days after discharge. She will follow up with anticoagulation clinic in 2-3 days after discharge. Patient has met maximum benefit of this hospitalization and will be discharged home in stable condition. Discharge discussed with: patient, nurse, other (Pharmacist) - Time Spent with Patient Total time spent providing and/or coordinating discharge services: Greater than 30 minutes - Discharge Medications Prescriptions: Azithromycin [Zithromax] 250 mg PO Q24H 4 Days #4 tablet Cefdinir [Omnicef] 300 mg PO BID 7 Days #14 capsule predniSONE [PredniSONE] See Taper PO DAILY 12 Days #30 tablet Home Medications: Cyanocobalamin (Vitamin B-12) [Vitamin B-12] 1,000 mcg PO DAILY 10/09/15 [ History] Iron Ps Cmplx/Vit B12/FA [Poly-Iron 150 Forte Capsule] 1 cap PO DAILY 03/03/16 [ History] Cyclobenzaprine [Flexeril] 10 mg PO TID 08/12/17 [History] Warfarin [Coumadin] 3 mg PO WEFR 08/12/17 [History] Warfarin [Coumadin] 4.5 mg PO SUMOTUTHSA 08/12/17 [History] Azithromycin [Zithromax] 250 mg PO Q24H 4 Days #4 tablet 08/14/17 [Rx] Cefdinir [Omnicef] 300 mg PO BID 7 Days #14 capsule 08/14/17 [Rx] predniSONE [PredniSONE] See Taper PO DAILY 12 Days #30 tablet 08/14/17 [Rx] Allergies/Adverse Reactions: 3 Allergy/AdvReac Type Severity Reaction Status Date / Time doxycycline Allergy Hives Verified 08/12/17 17:24 Sulfa (Sulfonamide Allergy Hives Verified 08/12/17 17:24 Antibiotics) tramadol Allergy Hives Verified 08/12/17 17:24 Date of admission: 08/12/17 20:58 Primary care physician: Lita Rojas Consults: 08/12/17 22:10 Consult to Nurse Navigator [CONS] Routine Comment: 08/13/17 08:52 Consult to Nurse Navigator [CONS] Routine Comment: Discharging clinician: Blanco Cardenas Anticipated date of discharge: 08/14/17 - Constitutional Vitals: Temp Pulse Resp BP Pulse Ox 98.3 F 82 18 114/69 96 08/14/17 11:37 08/14/17 11:37 08/14/17 11:37 08/14/17 11:37 08/14/17 11:37 General appearance: Present: cooperative, A&O X 3, pleasant, no acute distress, answers questions appropriately - Respiratory Respiratory exam: Present: CTAB. Absent: accessory muscle use, rales, rhonchi, wheezes Additional comments: Normal WOB - Cardiovascular Cardiovascular exam: Present: RRR, +S1, +S2. Absent: diastolic murmur, gallop, rubs, systolic murmur Additional comments: No BLE edema - GI/Abdominal GI/Abdominal exam: Present: normal bowel sounds, soft. Absent: distended, hepatomegaly, splenomegaly, tenderness - Psychiatric Psychiatric exam: Present: normal affect, normal mood. Absent: anxious, depressed - Skin Skin exam: Present: dry, intact, warm. Absent: cyanosis, rash - Patient Status Disposition: Home, Self-Care Condition: Good Functional capacity at discharge: independent ambulation Overall status at discharge: patient is progressing back to baseline - Discharge Instructions Follow Up With: Lita Rojas [Primary Care Provider] - - Diet and Activity Activity: resume usual activities as tolerated Diet: advance to your usual diet
[2017-08-14] MEDS ORDERED: *HR* Warfarin 3 MG TABLET PO SCH (18:00)
[2017-08-14] MEDS ORDERED: Azithromycin 250 MG TABLET PO SCH (21:00)
== END 2017-08-14 15:01 | disposition home or self-care (01) ==
LOC: 3NENU 17:20 → EMEROO 17:20 → 3NENU 21:27 → 2ANU 08-13 09:35
PROVIDERS: ADMIT Family Medicine; ATTEND Internal Medicine

== ENCOUNTER 2018-08-22 18:52 | Observation (INO) ==
--- NOTE | 2018-08-22 19:17 | Emergency Department Note ---
Disposition Clinical Impression: Atypical chest pain Disposition: Admitted As Inpatient Condition: Good Referrals: Lita Rojas [Primary Care Provider] - Forms: ED Satisfaction Letter Time of Disposition: 20:56 General Adult HPI - General Chief complaint: ED Chest Pain Stated complaint: chest pain into back Time Seen by Provider: 08/22/18 18:54 Source: patient Limitations: no limitations Nursing Notes Reviewed: Yes Vital Signs Reviewed: Yes - History of Present Illness HPI Narrative: This is a 42-year-old female with past medical history significant for history of DVTs currently on Coumadin and COPD who presents today complaining of chest pain that has persisted over 3 weeks. Patient states that she fell onto her chest about 3 weeks ago, and had bruising across her anterior chest. Now she is complaining of heavy, sharp chest pain that radiates into her bilateral arms and straight through to her back. The pain is currently rated 3-4/10. However it worsens with any type of movement, and becomes sharp with movement. Patient states pain is worse when she bends over. Associated symptoms include diaphoresis, nausea, lightheadedness/dizziness. She also notes fatigue, lethargy, malaise over the past couple weeks. Thus far the only medications that she has been taking are Tylenol and warfarin daily. She follows with the Coumadin clinic. Otherwise she denies any headache, blurry vision, neck jaw or shoulder pain, palpitations, difficulty breathing or wheezing, abdominal pain, vomiting, dysuria, lower extremity weakness. Pt Subjective Complaint: Chest Pain Onset (ago): week(s) (3 weeks) Location: chest Radiation: back, extremity Pain Severity: mild Pain Scale: 4 Quality: aching, dull, constant Consistency: constant Improves with: immobilization, rest Worsens with: movement Associated symptoms: Reports: chest pain, diaphoresis, loss of appetite, malaise, nausea/vomiting. Denies: confusion, cough, fever/chills, headaches, rash, shortness of breath, syncope Treatments Prior to Arrival: other (Tylenol) - Related Data Home Medications Medication Instructions Recorded Confirmed Warfarin [Coumadin] 3 mg PO WEFR 08/12/17 05/27/18 Warfarin [Coumadin] 4.5 mg PO SUMOTUTHSA 08/12/17 05/27/18 Iron Chews 08/03/18 Vitamin B-12 08/03/18 Allergies Allergy/AdvReac Type Severity Reaction Status Date / Time doxycycline Allergy Hives Verified 08/03/18 09:07 Sulfa (Sulfonamide Allergy Hives Verified 08/03/18 09:07 Antibiotics) tramadol Allergy Hives Verified 08/03/18 09:07 All systems ED: reviewed and negative except as stated. Constitutional: Denies: fever, chills, weakness Eyes: Denies: vision change ENT ED: Denies: ear pain, dysphagia Cardiovascular: Reports: chest pain. Denies: palpitations, syncope Respiratory: Denies: cough, dyspnea, wheezes Gastrointestinal: Reports: nausea, diarrhea. Denies: abdominal pain Genitourinary: Denies: dysuria Musculoskeletal: Reports: back pain. Denies: neck pain Integumentary: Denies: rash Neurological: Denies: headache, weakness, numbness Endocrine: Reports: fatigue Past Medical History - Past Medical History Attestation: Yes The following information was validated with the patient. 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 - Social History Smoking Status: Current every day smoker Smokeless Tobacco Status: No Alcohol use: Reports: none Drug use: Reports: marijuana Physical Exam - General Limitations: no limitations General appearance: alert, in no apparent distress - Head Head exam: atraumatic, normocephalic, normal inspection - Eye Eye exam: Present: normal appearance, PERRL, EOMI - ENT ENT exam: normal exam, normal oropharynx, mucous membranes moist - Neck Neck exam: Present: normal inspection, full ROM - Chest Chest inspection: Present: normal inspection, symmetric chest wall rise, tenderness (Mild tenderness across anterior chest; tenderness in substernal region) - Respiratory Respiratory exam: Present: normal lung sounds bilaterally - Cardiovascular Cardiovascular exam: Present: regular rate, normal rhythm, normal heart sounds, +S1, +S2 - Abdominal Exam Abdominal exam: Present: soft, Non-Tender, normal bowel sounds. Absent: tenderness, distention, guarding, rebound - Extremities Exam Extremities exam: Present: normal inspection, full ROM, normal capillary refill. Absent: tenderness - Back Exam Back exam: Present: normal inspection - Neurological Exam Neurological exam: Present: alert, oriented X3, CN II-XII intact - Psychiatric Psychiatric exam: Present: normal affect, normal mood - Skin Skin exam: Present: warm, dry, intact, normal color Course - Reevaluation(s) Reevaluation #1: Patient seen and examined at bedside. We will order routine labs, troponin, chest x-ray. EKG showed normal sinus rhythm and no acute ST changes. Time: 20:34 Reevaluation #2: Laboratory was benign. Chest x-ray was negative. Troponin was negative. Given patient's previous history of DVT on warfarin and chest pain, we will admit her for further workup of chest pain. Time: 20:37 Vital Signs Temperature 97.9 F 08/22/18 18:58 Pulse Rate 79 08/22/18 18:58 Respiratory Rate 18 08/22/18 18:58 Blood Pressure 134/86 08/22/18 18:58 O2 Sat by Pulse Oximetry 99 08/22/18 18:58 Temperature 97.9 F 08/22/18 18:58 Pulse Rate 80 08/22/18 20:09 Respiratory Rate 20 08/22/18 20:09 Blood Pressure 120/74 08/22/18 20:09 O2 Sat by Pulse Oximetry 98 08/22/18 20:09 Oxygen Delivery Oxygen Delivery Room Air Medical Decision Making - MDM Narrative Medical decision making narrative: 42-year-old female with past medical history significant for DVTs currently on Coumadin presents today with chest pain that is persisted over the past 3 weeks. Chest pain noted in pressure-like in the center of the chest, radiating down both arms. Pain has not improved since patient had fall directly onto chest about 3 weeks ago. Currently managed with Tylenol. Patient frequents Coumadin clinic and INR = 2.3. EKG showed normal sinus rhythm, troponins were negative. Otherwise lab work and vitals were benign. We will admit this patient for further workup of chest pain. Spoke with Dr. Aleman of hospitalist service who agreed to accept patient. - Differential Diagnosis Chest Pain - Medical Records Medical records reviewed: Yes I reviewed the patient's medical records. - Lab Data Lab results reviewed: Yes I reviewed the patient's lab results. Result diagrams: 08/22/18 19:25 08/22/18 19:25 Lab Results 08/22/18 08/22/18 08/22/18 Range/Units 19:25 19:25 19:25 WBC 7.1 (4.3-11.1) K/mcL RBC 3.44 L (3.82-4.97) M/mcL Hgb 11.6 (11.5-15.4) g/dL Hct 34.3 L (35.3-44.9) % MCV 99.7 (83.0-100.0) fL MCH 33.7 H (28.0-33.3) pg MCHC 33.8 (31.6-35.5) g/dL RDW 14.7 H (11.5-14.5) % Plt Count 306 (140-400) K/mcL MPV 8.5 L (9.4-12.4) fL Immature Gran % 0.3 (0-4) % Seg Neutrophils % 63.4 % Lymphocytes % 27.4 % Monocytes % 5.6 % Eosinophils % 2.9 % Basophils % 0.4 % Neutrophils # 4.5 (1.6-8.9) K/mcL Lymphocytes # 2.0 (0.6-4.6) K/mcL Monocytes # 0.4 (0.0-1.3) K/mcL Eosinophils # 0.2 (0.0-0.6) K/mcL Basophils # 0.0 (0.0-0.2) K/mcL PT 25.9 H (9.4-12.1) Seconds INR 2.3 Sodium 134 L (136-145) mEq/L Potassium 3.4 L (3.5-5.1) mEq/L Chloride 103 (98-107) mEq/L Carbon Dioxide 24 (23-29) mEq/L BUN 7 (6-20) mg/dL Creatinine 0.61 (0.60-1.20) mg/dL Est GFR ( Amer) > 60 (> 60) Est GFR (Non-Af Amer) > 60 (> 60) BUN/Creatinine Ratio 11 (6-26) Glucose 131 H (70-105) mg/dL Calculated Osmolality 278 L (280-300) Calcium 8.1 L (8.6-10.3) mg/dL Troponin I < 0.03 (< 0.04) ng/mL - Radiology Data Radiology results reviewed: Yes I reviewed the patient's radiology results. - EKG Data EKG #1 EKG attestation: Yes I reviewed and interpreted this EKG. EKG results narrative: HR = 72, HI 141, QRS = 87, QTC = 4-33. Normal Sinus Rhythm, Normal [place]. Similar to Previous EKG on 08/03/18.
[2018-08-22] MEDS ORDERED: Aspirin 325 MG TABLET PO ONE (19:28)
[2018-08-22 19:37] LABS: Basophils % 0.4 %; Eosinophils # 0.2 K/mcL (0.0-0.6); Eosinophils % 2.9 %; Hematocrit 34.3 % (35.3-44.9); Hemoglobin 11.6 g/dL (11.5-15.4); Immature Granulocytes % 0.3 % (0-4); Lymphocytes % 27.4 %; Mean Corpuscular HGB Conc 33.8 g/dL (31.6-35.5); Mean Corpuscular Hemoglobin 33.7 pg (28.0-33.3); Mean Corpuscular Volume 99.7 fL (83.0-100.0); Mean Platelet Volume 8.5 fL (9.4-12.4); Monocytes # 0.4 K/mcL (0.0-1.3); Monocytes % 5.6 %; Neutrophils # 4.5 K/mcL (1.6-8.9); Platelet Count 306 K/mcL (140-400); Red Blood Count 3.44 M/mcL (3.82-4.97); Red Cell Distribution Width 14.7 % (11.5-14.5); Segmented Neutrophils % 63.4 %
[2018-08-22 19:43] LABS: INR 2.3; Prothrombin Time 25.9 Seconds (9.4-12.1)
[2018-08-22 19:58] LABS: BUN/Creatinine Ratio 11 (6-26); Blood Urea Nitrogen 7 mg/dL (6-20); Calcium 8.1 mg/dL (8.6-10.3); Carbon Dioxide 24 mEq/L (23-29); Chloride 103 mEq/L (98-107); Glucose 131 mg/dL (70-105); Osmolality,Calculated 278 (280-300); Potassium 3.4 mEq/L (3.5-5.1); Sodium 134 mEq/L (136-145); eGFR For Non-African Americans > 60 (> 60)
[2018-08-22 19:59] LABS: Troponin I < 0.03 ng/mL (< 0.04)
--- NOTE | 2018-08-22 21:02 | Emergency Department Note ---
Disposition Clinical Impression: Chest pain Qualifiers: Chest pain type: unspecified Qualified Code(s): R07.9 - Chest pain, unspecified Disposition: Admitted As Inpatient Condition: Good Referrals: Lita Rojas [Primary Care Provider] - Forms: ED Satisfaction Letter General Adult HPI - General Chief complaint: ED Chest Pain Stated complaint: chest pain into back Time Seen by Provider: 08/22/18 18:54 Source: patient Limitations: no limitations - History of Present Illness Location: chest Pain Scale: 4 Quality: aching, dull, constant Improves with: immobilization, rest Worsens with: movement Associated symptoms: Reports: chest pain, diaphoresis, loss of appetite, malaise, nausea/vomiting. Denies: confusion, cough, fever/chills, headaches, rash, shortness of breath, syncope Treatments Prior to Arrival: other (Tylenol) - Related Data Home Medications Medication Instructions Recorded Confirmed Warfarin [Coumadin] 3 mg PO WEFR 08/12/17 05/27/18 Warfarin [Coumadin] 4.5 mg PO SUMOTUTHSA 08/12/17 05/27/18 Iron Chews 08/03/18 Vitamin B-12 08/03/18 Allergies Allergy/AdvReac Type Severity Reaction Status Date / Time doxycycline Allergy Hives Verified 08/03/18 09:07 Sulfa (Sulfonamide Allergy Hives Verified 08/03/18 09:07 Antibiotics) tramadol Allergy Hives Verified 08/03/18 09:07 Constitutional: Denies: fever, chills, weakness Eyes: Denies: vision change ENT ED: Denies: ear pain, dysphagia Cardiovascular: Reports: chest pain. Denies: palpitations, syncope Respiratory: Denies: cough, dyspnea, wheezes Gastrointestinal: Reports: nausea, diarrhea. Denies: abdominal pain Genitourinary: Denies: dysuria Musculoskeletal: Reports: back pain. Denies: neck pain Integumentary: Denies: rash Neurological: Denies: headache, weakness, numbness Endocrine: Reports: fatigue Past Medical History - Past Medical History Medical history: Reports: COPD, DVT, fibromyalgia Surgical history: Reports: other Psychiatric history: Reports: anxiety, depression ENG[employer]VER [employer] history: Reports: no ENGRAVER [employer] history - Social History Smoking Status: Current every day smoker Smokeless Tobacco Status: No Alcohol use: Reports: none Drug use: Reports: marijuana Physical Exam - General Limitations: no limitations General appearance: alert, in no apparent distress Course Vital Signs Temperature 97.9 F 08/22/18 18:58 Pulse Rate 79 08/22/18 18:58 Respiratory Rate 18 08/22/18 18:58 Blood Pressure 134/86 08/22/18 18:58 O2 Sat by Pulse Oximetry 99 08/22/18 18:58 Temperature 97.9 F 08/22/18 18:58 Pulse Rate 80 08/22/18 20:09 Respiratory Rate 20 08/22/18 20:09 Blood Pressure 120/74 08/22/18 20:09 O2 Sat by Pulse Oximetry 98 08/22/18 20:09 Oxygen Delivery Oxygen Delivery Room Air Medical Decision Making - Lab Data Result diagrams: 08/22/18 19:25 08/22/18 19:25 Lab Results 08/22/18 08/22/18 08/22/18 Range/Units 19:25 19:25 19:25 WBC 7.1 (4.3-11.1) K/mcL RBC 3.44 L (3.82-4.97) M/mcL Hgb 11.6 (11.5-15.4) g/dL Hct 34.3 L (35.3-44.9) % MCV 99.7 (83.0-100.0) fL MCH 33.7 H (28.0-33.3) pg MCHC 33.8 (31.6-35.5) g/dL RDW 14.7 H (11.5-14.5) % Plt Count 306 (140-400) K/mcL MPV 8.5 L (9.4-12.4) fL Immature Gran % 0.3 (0-4) % Seg Neutrophils % 63.4 % Lymphocytes % 27.4 % Monocytes % 5.6 % Eosinophils % 2.9 % Basophils % 0.4 % Neutrophils # 4.5 (1.6-8.9) K/mcL Lymphocytes # 2.0 (0.6-4.6) K/mcL Monocytes # 0.4 (0.0-1.3) K/mcL Eosinophils # 0.2 (0.0-0.6) K/mcL Basophils # 0.0 (0.0-0.2) K/mcL PT 25.9 H (9.4-12.1) Seconds INR 2.3 Sodium 134 L (136-145) mEq/L Potassium 3.4 L (3.5-5.1) mEq/L Chloride 103 (98-107) mEq/L Carbon Dioxide 24 (23-29) mEq/L BUN 7 (6-20) mg/dL Creatinine 0.61 (0.60-1.20) mg/dL Est GFR ( Amer) > 60 (> 60) Est GFR (Non-Af Amer) > 60 (> 60) BUN/Creatinine Ratio 11 (6-26) Glucose 131 H (70-105) mg/dL Calculated Osmolality 278 L (280-300) Calcium 8.1 L (8.6-10.3) mg/dL Troponin I < 0.03 (< 0.04) ng/mL Attestation Statement - Attestation Attestation: I examined this patient and my medical decision-making was reviewed with the Resident Physician. I agree with the documented findings, disposition and treatment plan as described except to the extent set forth below. 42 year old female presnet to the ED with complaints of chest pain and has a history of DVT and currently on counadin therapy and INR is 2.3. Patient is moderate heart score and will be admitted. negative troponin and non ischemic EKG. ASA given for therapy. chest pain free now. accepted to medicine. CTA on 08/12 (-) for PE
[2018-08-22] MEDS ORDERED: Naloxone 0.4 MG/ML INJ IVP PRN (23:37)
--- NOTE | 2018-08-23 00:15 | Internal Med History&Physical ---
Date of Encounter: 08/22/18 Time of Encounter: 23:00 Internal Medicine - H&P: HPI Chief complaint: Chest Pain Admitted From: Home Plans for Post Hospital Care: Home History of present illness: Ms. Andrew is a 42 year old female with past medical history significant for COPD, DVT in bilateral lower extremities on coumadin, anemia, fibromyalgia, depression, and anxiety who presents for complaints of intermittent chest pain in center of chest. Pain is described as squeezing and sometimes radiates across chest and down both arms, and is 10/10 when at worst. Pain is reproducible on palpation and worse with movement. Pain is associated with nausea, diaphoresis, and shortness of breath. Pain improved somewhat with rest and tylenol at home but states typically lasts few minutes and resolves spontaneously. ER gave dose of aspirin and patient reports being pain free since. Currently denies any headache, dizziness, numbness, tingling, chest pain, shortness of breath, cough, abdominal pain, nausea, bowel or bladder changes. Was seen in [place] ER around three weeks ago following fall on ice and landing on her chest, chest xray was negative at that time as well as head and face CT. Pain has been getting progressively worse since fall however she also reports experiencing the same intermittent chest pains for a few weeks prior to her fall. ER obtained EKG and reported as sinus rhythm similar to previous EKG on 08/03/18. ER obtained chest xray showing no acute abnormality. Denies any previous echocardiogram or stress test. Follows regularly with PCP and coumadin clinic. Past Med Surg Social Fam HX - Past Medical History Medical history: COPD, DVT, fibromyalgia Additional medical history: adrenal hemorrage, anemia Psychiatric history: anxiety, depression - Past Surgical History Surgical History: other Additional surgical history: dental sx, tubal pregnacy, partial hysterectomy - Social History Smoking Status: Current every day smoker Smokeless Tobacco Status: No Alcohol use: none Drug use: marijuana - Family History Mother Living Status: Still Living Hx Family Cardiac Disorders: ([place]) Hx Family Endocrine Disorder: (DM, Thyroid) Internal Medicine - H&P: Meds Warfarin [Coumadin] 3 mg PO WEFR 08/12/17 [History] Warfarin [Coumadin] 4.5 mg PO SUMOTUTHSA 08/12/17 [History] Iron Chews 08/03/18 [History] Vitamin B-12 08/03/18 [History] Tizanidine HCl [Zanaflex] 4 mg PO TID PRN 08/23/18 [History] Allergy/AdvReac Type Severity Reaction Status Date / Time doxycycline Allergy Hives Verified 08/03/18 09:07 Sulfa (Sulfonamide Allergy Hives Verified 08/03/18 09:07 Antibiotics) tramadol Allergy Hives Verified 08/03/18 09:07 All Systems PM: A 10-system review of systems was performed and is negative for pertinent findings except as documented above in the HPI. - Constitutional Vitals: Temp Pulse Resp BP Pulse Ox 97.9 F 80 14 142/82 98 08/22/18 18:58 08/22/18 20:09 08/22/18 21:50 08/22/18 21:50 08/22/18 20:09 Exam: General: Alert and oriented. Skin:Normal color, no rash, no lesions. HEENT:Pupils equal, round and reactive. Cardiovascular:Normal S1 & S2, no rubs, murmurs or gallops. No JVD. Pulse regular. Chest wall tender to palpation. Lungs:Breath sounds decreased, no wheezes or crackles. Abdomen:Soft, non-tender, no rigidity. Extremities:No deformity, no edema or tenderness, no joint swelling or clubbing. Neurological:Normal cognition and motor skills. Pulses:Carotid and radial pulses normal +2. Rest of the physical exam is non contributory. Internal Med - H&P Results - Labs CBC & Chem 7: 08/22/18 19:25 08/22/18 19:25 Labs: Short CBC 08/22/18 Range/Units 19:25 WBC 7.1 (4.3-11.1) K/mcL Hgb 11.6 (11.5-15.4) g/dL Hct 34.3 L (35.3-44.9) % Plt Count 306 (140-400) K/mcL Neutrophils # 4.5 (1.6-8.9) K/mcL BMP 08/22/18 19:25 Sodium 134 L Potassium 3.4 L Chloride 103 Carbon Dioxide 24 BUN 7 Creatinine 0.61 Glucose 131 H Calcium 8.1 L Cardiac Enzymes 08/22/18 Range/Units 19:25 Troponin I < 0.03 (< 0.04) ng/mL - Impressions ITS Impressions Chest X-Ray 08/22/18 19:05 IMPRESSION: No acute abnormality detected. D/ / Inder Smith MD / Inder Smith MD Interpreting Provider: Inder Smith MD - Assessment and Plan (1) Chest pain Current Visit: Yes Status: Acute Assessment and plan: Has been experiencing over past several weeks getting progressively worse. Also had fall onto chest around three weeks ago causing worsening of symptoms. Likely experiencing pain from trauma with possible underlying cardiac component as pain was present prior to fall. Chest xray negative. Initial troponin in ER negative, serial troponins ordered. Continuous cardiac monitoring. Echocardiogram and stress test ordered. Qualifiers: Chest pain type: unspecified Qualified Code(s): R07.9 - Chest pain, unspecified (2) Hyponatremia Current Visit: Yes Status: Acute Assessment and plan: Slightly low. MIVF ordered. Repeat labs in a.m. (3) Hypokalemia Current Visit: Yes Status: Acute Assessment and plan: Replacement received in ER. Repeat labs in a.m. (4) Tobacco abuse Current Visit: Yes Status: Chronic Assessment and plan: Cessation encouraged. Nicotine patch ordered. (5) Marijuana abuse Current Visit: Yes Status: Chronic Assessment and plan: Cessation encouraged. - Time Spent With Patient Total time spent is greater than 50% in coordination of care (as documented) at patient's floor/unit and/or counseling patient:
[2018-08-23] MEDS: Nicotine 7 MG PATCH.TD24 TD SCH ×2 (00:39→10:25)
[2018-08-23] MEDS ORDERED: 0.9 % Sodium Chloride 1,000 ML IVC SCH (01:00)
[2018-08-23] MEDS: tiZANidine 4 MG TABLET PO PRN ×2 (01:03→10:23)
[2018-08-23 02:03] LABS: Basophils % 0.6 %; Eosinophils # 0.3 K/mcL (0.0-0.6); Eosinophils % 3.5 %; Hematocrit 31.7 % (35.3-44.9); Hemoglobin 10.4 g/dL (11.5-15.4); Immature Granulocytes % 0.1 % (0-4); Lymphocytes # 2.7 K/mcL (0.6-4.6); Lymphocytes % 37.5 %; Mean Corpuscular HGB Conc 32.8 g/dL (31.6-35.5); Mean Corpuscular Hemoglobin 32.9 pg (28.0-33.3); Mean Corpuscular Volume 100.3 fL (83.0-100.0); Mean Platelet Volume 9.6 fL (9.4-12.4); Monocytes # 0.5 K/mcL (0.0-1.3); Monocytes % 7.1 %; Neutrophils # 3.7 K/mcL (1.6-8.9); Platelet Count 221 K/mcL (140-400); Red Blood Count 3.16 M/mcL (3.82-4.97); Red Cell Distribution Width 14.7 % (11.5-14.5); Segmented Neutrophils % 51.2 %
[2018-08-23 02:12] LABS: Prothrombin Time 22.2 Seconds (9.4-12.1)
[2018-08-23 02:33] LABS: BUN/Creatinine Ratio 14 (6-26); Blood Urea Nitrogen 7 mg/dL (6-20); Calcium 7.7 mg/dL (8.6-10.3); Carbon Dioxide 23 mEq/L (23-29); Chloride 106 mEq/L (98-107); Glucose 85 mg/dL (70-105); Osmolality,Calculated 277 (280-300); Potassium 3.5 mEq/L (3.5-5.1); Sodium 135 mEq/L (136-145); eGFR For Non-African Americans > 60 (> 60)
[2018-08-23] MEDS ORDERED: *HR* Warfarin 5 MG TABLET PO ONE (03:45)
[2018-08-23 06:49] VITALS: BP 109/74
[2018-08-23] MEDS ORDERED: Acetaminophen 325 MG TABLET PO PRN (08:43)
[2018-08-23] MEDS ORDERED: Cyanocobalamin (B-12) 1,000 MCG TABLET PO SCH (09:00)
[2018-08-23] MEDS ORDERED: IRON 27 MG PO SCH (09:00)
--- NOTE | 2018-08-23 11:27 | Discharge Summary ---
- NOTES TO OUTPATIENT PROVIDER Notes to Outpatient Provider: Outpatient stress test Orders not resulted at time of discharge: Pending orders 08/22/18 19:05 ECG 12 lead ECG [ECG] Stat 08/22/18 23:39 EV echocardiogram Routine 08/24/18 04:00 PT/INR [Prothrombin Time INR] [COAG] AM 0400 08/25/18 04:00 PT/INR [Prothrombin Time INR] [COAG] AM 0400 08/26/18 04:00 PT/INR [Prothrombin Time INR] [COAG] AM 0400 08/27/18 04:00 PT/INR [Prothrombin Time INR] [COAG] AM 0400 Date of Encounter: 08/23/18 Time of Encounter: 10:15 - Discharge Diagnosis (1) Chest pain Priority: Primary Status: Acute Qualifiers: Chest pain type: other chest pain Qualified Code(s): R07.9 - Chest pain, unspecified (2) Hyponatremia Priority: Secondary Status: Acute (3) Hypokalemia Priority: Secondary Status: Acute (4) Tobacco abuse Priority: Secondary Status: Chronic (5) Marijuana abuse Priority: Secondary Status: Chronic Hospital course: Ms. Andrew is a 42 year old female with history of tobacco abuse, who was recently seen in the ED on 08/03 after sustaining a fall with direct trauma to anterior chest wall, was admitted for non-cardiac chest pain. ACS ruled out. Stress test was initially ordered by the admitting provider but was delayed due to patient drinking soda after midnight. Patient's examination clearly demonstrated exquisite tenderness over mid sternum. CXR did not show any fracture. Discussed at length with the patient that, although CAD can't be entirely excluded, it is much more likely to be non-cardiac cause and it would be reasonable to perform stress test as outpatient if desired. Since the patie nt only had marginal relief of her discomfort on Tylenol only, Tylenol #3 was prescribed. Discharge discussed with: patient, family, nurse - Time Spent with Patient Total time spent providing and/or coordinating discharge services: 27 mins - Discharge Medications Prescriptions: New Acetaminophen w/Cod 300-30 mg [Tylenol w/Codeine #3] 1 each PO Q6HR PRN 4 Days #16 tablet PRN Reason: Breakthrough Pain Continue Warfarin [Coumadin] 4.5 mg PO SUTUWETHSA Warfarin [Coumadin] 3 mg PO MOFR Cyanocobalamin (Vitamin B-12) [Vitamin B-12] 1,000 mcg PO DAILY Ferrous Sulfate [High Potency Iron] 27 mg PO DAILY Tizanidine HCl [Zanaflex] 2 mg PO BID PRN PRN Reason: Muscle Spasm Home Medications: Warfarin [Coumadin] 3 mg PO MOFR 08/12/17 [History] Warfarin [Coumadin] 4.5 mg PO SUTUWETHSA 08/12/17 [History] Cyanocobalamin (Vitamin B-12) [Vitamin B-12] 1,000 mcg PO DAILY 08/03/18 [History] Ferrous Sulfate [High Potency Iron] 27 mg PO DAILY 08/03/18 [History] Acetaminophen w/Cod 300-30 mg [Tylenol w/Codeine #3] 1 each PO Q6HR PRN 4 Days #16 tablet 08/23/18 [Rx] Tizanidine HCl [Zanaflex] 2 mg PO BID PRN 08/23/18 [History] Allergies/Adverse Reactions: Allergy/AdvReac Type Severity Reaction Status Date / Time doxycycline Allergy Hives Verified 08/23/18 10:41 Sulfa (Sulfonamide Allergy Hives Verified 08/23/18 10:41 Antibiotics) tramadol Allergy Hives Verified 08/23/18 10:41 Date of admission: 08/22/18 21:05 Primary care physician: Lita Rojas - Constitutional Vitals: Temp Pulse Resp BP Pulse Ox 98.0 F 67 16 109/74 96 08/23/18 06:46 08/23/18 06:46 08/23/18 06:46 08/23/18 06:46 08/23/18 06:46 Exam: General: Alert and oriented, not in acute distress. Chest: Exquisite tenderness over mid-sternum Cardiovascular:Normal S1 & S2, No JVD. Pulse regular. Lungs: clear to auscultation, no wheezes/rales Abdomen:Soft, non-tender, no rigidity. Extremities:No deformity or swelling Neurological:Normal cognition and motor skills. Non-focal - Patient Status Disposition: Home, Self-Care Condition: Good Functional capacity at discharge: independent ambulation Overall status at discharge: patient is back to baseline - Discharge Instructions Instructions: Chest Pain (DC) Follow Up With: Bob,Lita [Primary Care Provider] - Additional Instructions: Tylenol #3 PRN for pain not relieved by Tylenol only Outpatient stress test - Diet and Activity Activity: resume usual activities as tolerated Diet: regular diet
[2018-08-23] MEDS ORDERED: Warfarin perPT PO PRN (18:00)
[2018-08-23] MEDS ORDERED: *HR* Warfarin 3 MG TABLET PO SCH (18:00)
--- NOTE | 2018-08-24 16:15 | Electrocardiograph Report ---
[place] [id number] Test Date: 2018-08-22 Pat Name: Wendy Andrew Department: EXAM16 Room: 3B39 Gender: F Bank Boss: : [id number] Requested By: Olesya Boyd Order Number: [id number] Reading MD: Tam Thompson Measurements Intervals [place] Rate: 72 P: 80 DE: 141 QRS: 51 QRSD: 87 T: 59 QT: 395 QTc: 433 Interpretive Statements Sinus rhythm Electronically Signed On 08-24-2018 16:13:58 EDT by Tam Thompson
[2018-08-24] MEDS ORDERED: *HR* Warfarin 3 MG TABLET PO SCH (18:00)
== END 2018-08-23 12:12 | disposition home or self-care (01) ==
LOC: EMEROOARM 18:52 → 3BNU 18:52 → SUATTDRO 21:05 → 3BNU 23:35
PROVIDERS: ADMIT Pediatrics; ATTEND Internal Medicine

== ENCOUNTER 2020-12-09 01:52 | Inpatient (IN) ==
[2020-12-09] MEDS ORDERED: Ipratropium/Albuterol Neb 3 ML IH ONE (02:22)
[2020-12-09 03:00] LABS: BUN/Creatinine Ratio 16 (6-26); Blood Urea Nitrogen 12 mg/dL (6-20); Calcium 7.7 mg/dL (8.6-10.3); Carbon Dioxide 24 mEq/L (23-29); Chloride 103 mEq/L (98-107); Glucose 84 mg/dL (70-105); Osmolality,Calculated 275 (280-300); Potassium 3.4 mEq/L (3.5-5.1); Sodium 133 mEq/L (136-145); Troponin I < 0.03 ng/mL (< 0.04); eGFR For African Americans > 60 (> 60); eGFR For Non-African Americans > 60 (> 60)
[2020-12-09 03:08] LABS: Eosinophils % 0.3 %; Hematocrit 23.2 % (35.3-44.9); Lymphocytes % 32.3 %; Mean Corpuscular Volume 92.1 fL (83.0-100.0); Red Blood Count 2.52 M/mcL (3.82-4.97); Red Cell Distribution Width 17.8 % (11.5-14.5)
[2020-12-09 03:10] LABS: Hemoglobin 7.8 g/dL (11.5-15.4); Immature Granulocytes % 9.7 % (0-4); Immature Platelets 2.4 % (1.1-6.1); Lymphocytes # 1.1 K/mcL (0.6-4.6); Mean Corpuscular HGB Conc 33.6 g/dL (31.6-35.5); Monocytes # 0.5 K/mcL (0.0-1.3); Monocytes % 14.9 %; Neutrophils # 1.5 K/mcL (1.6-8.9); Segmented Neutrophils % 42.8 %; White Blood Count 3.5 K/mcL (4.3-11.1)
[2020-12-09 03:14] LABS: Platelet Count 58 K/mcL (140-400)
[2020-12-09 03:18] LABS: Platelet Estimate Decreased (Normal)
[2020-12-09 03:19] LABS: Anisocytosis 1+ (Not Present)
[2020-12-09] MEDS ORDERED: Isovue-370 500 ML BOTTLE IVP ONE (03:26)
[2020-12-09] MEDS ORDERED: levoFLOXacin 750 MG TABLET PO ONE (06:03)
[2020-12-09] MEDS ORDERED: predniSONE 20 MG TABLET PO ONE (06:03)
[2020-12-09] MEDS ORDERED: Levalbuterol Neb 1.25 MG/3 ML ONE (06:48)
[2020-12-09] MEDS ORDERED: *HR* Labetalol 20 MG/4 ML SYRINGE IVP ONE (06:49)
[2020-12-09] MEDS ORDERED: Naloxone 0.4 MG/ML INJ IVP PRN (08:21)
[2020-12-09] MEDS ORDERED: Albuterol 2.5 MG/3 ML NEBULIZER IH PRN (09:27)
[2020-12-09] MEDS ORDERED: Furosemide 40 MG/4 ML VIAL IVP ONE (09:27)
[2020-12-09] MEDS ORDERED: Furosemide 40 MG/4 ML VIAL ONE (09:35)
[2020-12-09] MEDS: Ipratropium/Albuterol Neb 3 ML IH SCH ×5 (09:41→23:54)
[2020-12-09] MEDS ORDERED: *HR* Heparin 5,000 UNIT/ML VIAL IVP PRN ×4 (12:01→20:54)
[2020-12-09] MEDS ORDERED: Perflutren Lipid Microsphere 1.3 ML in 0.9 % Sodium Chloride 8.7 ML IVP PRN (12:02)
[2020-12-09] MEDS ORDERED: Aspirin 325 MG TABLET PO ONE (12:05)
[2020-12-09] MEDS ORDERED: Heparin 25,000UNIT/250ML 1/2NS 25,000 UNIT/250 ML IV.SOLN IVC SCH ×2 (12:15→21:00)
[2020-12-09 12:22] LABS: Adenovirus Not Detected (Not Detect); Bordetella Pertussis Not Detected (Not Detect); Chlamydophila pneumoniae Not Detected (Not Detect); Coronavirus 229E Not Detected (Not Detect); Coronavirus HKU1 Not Detected (Not Detect); Coronavirus NL63 Not Detected (Not Detect); Coronavirus OC43 Not Detected (Not Detect); Human Metapneumovirus Not Detected (Not Detect); Human Rhinovirus/Enterovirus DETECTED (Not Detect); Influenza A Subtype 2009 H1 Not Detected (Not Detect); Influenza B Not Detected (Not Detect); Mycoplasma pneumoniae Not Detected (Not Detect); Parainfluenza Virus 1 Not Detected (Not Detect); Parainfluenza Virus 2 Not Detected (Not Detect); Parainfluenza Virus 3 Not Detected (Not Detect); Parainfluenza Virus 4 Not Detected (Not Detect); Respiratory Syncytial Virus Not Detected (Not Detect); SARS-CoV-2 Not Detected (Not Detect)
[2020-12-09 13:00] LABS: INR 1.3; Prothrombin Time 14.7 Seconds (9.4-12.1)
[2020-12-09 13:03] LABS: Activated Partial Thrombo Time 23.2 Seconds (26.0-36.0)
[2020-12-09] MEDS: methylPREDNISolone 125 MG/2 ML VIAL IVP SCH (16:04)
[2020-12-09] MEDS: Budesonide/Formoterol 160/4.5 1 PUFF INH IH SCH (19:52)
[2020-12-09] MEDS: Zinc Sulfate 220 MG CAPSULE PO SCH (19:58)
[2020-12-09] MEDS: Acyclovir 200 MG CAPSULE PO SCH (19:58)
[2020-12-09] MEDS: Sennosides 8.6 MG TABLET PO SCH (19:59)
[2020-12-09] MEDS: OLANZapine 5 MG TAB.RAPDIS PO SCH (19:59)
[2020-12-09] MEDS: *HR* OxyCODONE Immed Rel 5 MG TABLET PO PRN (20:34)
[2020-12-09] MEDS ORDERED: *HR* Heparin 5,000 UNIT/ML VIAL IVP ONE (20:54)
[2020-12-10] MEDS: methylPREDNISolone 125 MG/2 ML VIAL IVP SCH ×3 (00:36→18:31)
[2020-12-10] MEDS: Ipratropium/Albuterol Neb 3 ML IH SCH ×6 (03:46→23:57)
[2020-12-10 05:24] LABS: Basophils % 0.3 %; White Blood Count 3.7 K/mcL (4.3-11.1)
[2020-12-10 05:26] LABS: Hematocrit 23.8 % (35.3-44.9); Hemoglobin 8.1 g/dL (11.5-15.4); Immature Granulocytes % 0.3 % (0-4); Immature Platelets 1.9 % (1.1-6.1); Lymphocytes # 0.9 K/mcL (0.6-4.6); Lymphocytes % 24.2 %; Mean Corpuscular Hemoglobin 30.6 pg (28.0-33.3); Mean Corpuscular Volume 89.8 fL (83.0-100.0); Mean Platelet Volume 10.9 fL (9.4-12.4); Monocytes # 0.5 K/mcL (0.0-1.3); Monocytes % 12.1 %; Red Blood Count 2.65 M/mcL (3.82-4.97); Red Cell Distribution Width 17.3 % (11.5-14.5); Segmented Neutrophils % 63.1 %
[2020-12-10 05:29] LABS: Neutrophils # 2.3 K/mcL (1.6-8.9); Platelet Count 50 K/mcL (140-400)
[2020-12-10 05:39] LABS: BUN/Creatinine Ratio 28 (6-26); Blood Urea Nitrogen 19 mg/dL (6-20); Carbon Dioxide 26 mEq/L (23-29); Chloride 100 mEq/L (98-107); Glucose 139 mg/dL (70-105); Osmolality,Calculated 283 (280-300); Potassium 3.5 mEq/L (3.5-5.1); Sodium 134 mEq/L (136-145); eGFR For African Americans > 60 (> 60); eGFR For Non-African Americans > 60 (> 60)
[2020-12-10 06:10] LABS: Anisocytosis 1+ (Not Present); Platelet Estimate Decreased (Normal)
[2020-12-10] MEDS: Budesonide/Formoterol 160/4.5 1 PUFF INH IH SCH ×2 (07:42→19:52)
[2020-12-10] MEDS: Tiotropium 10 INH DOSE IH SCH (07:43)
[2020-12-10] MEDS: levoFLOXacin 750 MG/150 ML 750 MG/150 ML BAG IVPB SCH (07:48)
[2020-12-10] MEDS: Sennosides 8.6 MG TABLET PO SCH ×2 (07:48→21:05)
[2020-12-10] MEDS: Zinc Sulfate 220 MG CAPSULE PO SCH ×2 (07:49→21:11)
[2020-12-10] MEDS: Aspirin Enteric Coated 81 MG Tablet PO SCH (07:50)
[2020-12-10] MEDS: Acyclovir 200 MG CAPSULE PO SCH ×2 (07:50→21:11)
[2020-12-10] MEDS: *HR* OxyCODONE Immed Rel 5 MG TABLET PO PRN ×2 (08:52→21:10)
[2020-12-10] MEDS: OLANZapine 5 MG TAB.RAPDIS PO SCH (21:09)
[2020-12-10] MEDS: Furosemide 20 MG/2 ML VIAL IVP SCH (21:11)
[2020-12-10] MEDS ORDERED: Ondansetron 4 MG/2 ML VIAL IVP ONE (21:33)
[2020-12-10] MEDS: Melatonin 3 MG TABLET PO PRN (21:52)
[2020-12-11] MEDS ORDERED: Oxymetazoline Nasal SPRAY BOTTLE NS PRN (01:26)
[2020-12-11 02:38] LABS: Red Cell Distribution Width 17.6 % (11.5-14.5)
[2020-12-11 02:40] LABS: Hematocrit 23.9 % (35.3-44.9); Hemoglobin 7.9 g/dL (11.5-15.4); Immature Granulocytes % 0.8 % (0-4); Immature Platelets 2.9 % (1.1-6.1); Lymphocytes # 0.7 K/mcL (0.6-4.6); Lymphocytes % 19.9 %; Mean Corpuscular HGB Conc 33.1 g/dL (31.6-35.5); Mean Corpuscular Hemoglobin 30.4 pg (28.0-33.3); Mean Corpuscular Volume 91.9 fL (83.0-100.0); Monocytes # 0.2 K/mcL (0.0-1.3); Monocytes % 5.2 %; Neutrophils # 2.7 K/mcL (1.6-8.9); Segmented Neutrophils % 74.1 %; White Blood Count 3.6 K/mcL (4.3-11.1)
[2020-12-11 02:44] LABS: Platelet Count 43 K/mcL (140-400)
[2020-12-11 02:55] LABS: BUN/Creatinine Ratio 32 (6-26); Blood Urea Nitrogen 33 mg/dL (6-20); Calcium 7.7 mg/dL (8.6-10.3); Carbon Dioxide 24 mEq/L (23-29); Chloride 98 mEq/L (98-107); Glucose 151 mg/dL (70-105); Magnesium 2.4 mg/dL (1.6-2.6); Osmolality,Calculated 286 (280-300); Phosphorous 4.7 mg/dL (2.7-4.5); Potassium 3.6 mEq/L (3.5-5.1); Sodium 133 mEq/L (136-145); eGFR For African Americans > 60 (> 60); eGFR For Non-African Americans 58 (> 60)
[2020-12-11] MEDS ORDERED: Lidocaine Viscous Oral Soln 15 ML SOLUTION MM ONE (03:06)
[2020-12-11] MEDS: *HR* OxyCODONE Immed Rel 5 MG TABLET PO PRN ×3 (03:14→16:32)
[2020-12-11 03:47] LABS: Anisocytosis 1+ (Not Present); Platelet Estimate Decreased (Normal)
[2020-12-11] MEDS: Ipratropium/Albuterol Neb 3 ML IH SCH ×6 (04:04→23:25)
[2020-12-11] MEDS ORDERED: Thrombin (Bovine) 5,000 UNIT NAS.SP.SYR TP ONE (04:18)
[2020-12-11] MEDS ORDERED: Morphine Sulfate 2 MG/ML SYRINGE IVP ONE (05:02)
[2020-12-11] MEDS: methylPREDNISolone 125 MG/2 ML VIAL IVP SCH (05:12)
[2020-12-11] MEDS: Tiotropium 10 INH DOSE IH SCH (07:25)
[2020-12-11] MEDS: Budesonide/Formoterol 160/4.5 1 PUFF INH IH SCH ×2 (07:26→19:32)
[2020-12-11] MEDS: Zinc Sulfate 220 MG CAPSULE PO SCH ×2 (08:04→21:16)
[2020-12-11] MEDS: Aspirin Enteric Coated 81 MG Tablet PO SCH (08:05)
[2020-12-11] MEDS: Sennosides 8.6 MG TABLET PO SCH ×2 (08:05→21:16)
[2020-12-11] MEDS: Acyclovir 200 MG CAPSULE PO SCH ×2 (08:08→21:17)
[2020-12-11] MEDS: levoFLOXacin 750 MG/150 ML 750 MG/150 ML BAG IVPB SCH (09:05)
[2020-12-11] MEDS: Furosemide 20 MG/2 ML VIAL IVP SCH ×2 (09:05→21:17)
[2020-12-11] MEDS ORDERED: Saline Nasal Spray 44 ML BOTTLE NS PRN (12:57)
[2020-12-11] MEDS: lisinopriL 5 MG TABLET PO SCH (14:10)
[2020-12-11] MEDS: OLANZapine 5 MG TAB.RAPDIS PO SCH (21:16)
[2020-12-11] MEDS: Apixaban 5 MG TABLET PO SCH (21:16)
[2020-12-11] MEDS: tiZANidine 4 MG TABLET PO PRN (21:34)
[2020-12-11] MEDS: Melatonin 3 MG TABLET PO PRN (21:34)
[2020-12-12] MEDS: *HR* OxyCODONE Immed Rel 5 MG TABLET PO PRN ×4 (03:41→22:12)
[2020-12-12] MEDS: Ipratropium/Albuterol Neb 3 ML IH SCH ×6 (04:00→23:49)
[2020-12-12] MEDS: Budesonide/Formoterol 160/4.5 1 PUFF INH IH SCH ×2 (07:35→20:07)
[2020-12-12] MEDS: predniSONE 20 MG TABLET PO SCH (08:57)
[2020-12-12] MEDS: lisinopriL 5 MG TABLET PO SCH (08:58)
[2020-12-12] MEDS: Zinc Sulfate 220 MG CAPSULE PO SCH ×2 (08:58→22:13)
[2020-12-12] MEDS: Sennosides 8.6 MG TABLET PO SCH ×2 (08:59→22:13)
[2020-12-12] MEDS: Apixaban 5 MG TABLET PO SCH ×2 (08:59→22:11)
[2020-12-12] MEDS: Furosemide 20 MG/2 ML VIAL IVP SCH (09:00)
[2020-12-12] MEDS: Metoprolol XL (24 HR) Succ 25 MG TAB.ER.24H PO SCH (09:00)
[2020-12-12] MEDS: Acyclovir 200 MG CAPSULE PO SCH ×2 (09:00→22:13)
[2020-12-12] MEDS: levoFLOXacin 750 MG/150 ML 750 MG/150 ML BAG IVPB SCH (09:01)
[2020-12-12 09:36] LABS: Red Cell Distribution Width 17.5 % (11.5-14.5)
[2020-12-12 09:37] LABS: Hematocrit 23.1 % (35.3-44.9); Hemoglobin 7.8 g/dL (11.5-15.4); Immature Platelets 2.9 % (1.1-6.1); Mean Corpuscular HGB Conc 33.8 g/dL (31.6-35.5); Mean Corpuscular Hemoglobin 31.3 pg (28.0-33.3); Mean Corpuscular Volume 92.8 fL (83.0-100.0); Mean Platelet Volume 11.2 fL (9.4-12.4); Red Blood Count 2.49 M/mcL (3.82-4.97)
[2020-12-12 09:55] LABS: BUN/Creatinine Ratio 35 (6-26); Blood Urea Nitrogen 28 mg/dL (6-20); Calcium 7.3 mg/dL (8.6-10.3); Carbon Dioxide 25 mEq/L (23-29); Chloride 101 mEq/L (98-107); Glucose 86 mg/dL (70-105); Osmolality,Calculated 283 (280-300); Potassium 3.6 mEq/L (3.5-5.1); Sodium 134 mEq/L (136-145); eGFR For African Americans > 60 (> 60); eGFR For Non-African Americans > 60 (> 60)
[2020-12-12] MEDS: Melatonin 3 MG TABLET PO PRN (22:12)
[2020-12-12] MEDS: tiZANidine 4 MG TABLET PO PRN (22:13)
[2020-12-12] MEDS: OLANZapine 5 MG TAB.RAPDIS PO SCH (22:14)
[2020-12-13 01:54] LABS: Hematocrit 21.4 % (35.3-44.9); Hemoglobin 7.1 g/dL (11.5-15.4); Mean Corpuscular HGB Conc 33.2 g/dL (31.6-35.5); Mean Corpuscular Hemoglobin 30.6 pg (28.0-33.3); Mean Corpuscular Volume 92.2 fL (83.0-100.0); Red Blood Count 2.32 M/mcL (3.82-4.97)
[2020-12-13 01:56] LABS: Immature Granulocytes % 0.6 % (0-4); Immature Platelets 3.1 % (1.1-6.1); Lymphocytes # 1.8 K/mcL (0.6-4.6); Lymphocytes % 50.4 %; Monocytes # 0.2 K/mcL (0.0-1.3); Neutrophils # 1.6 K/mcL (1.6-8.9); Red Cell Distribution Width 17.3 % (11.5-14.5); White Blood Count 3.6 K/mcL (4.3-11.1)
[2020-12-13 02:01] LABS: Platelet Count 25 K/mcL (140-400)
[2020-12-13 02:17] LABS: BUN/Creatinine Ratio 29 (6-26); Blood Urea Nitrogen 23 mg/dL (6-20); Calcium 7.2 mg/dL (8.6-10.3); Carbon Dioxide 25 mEq/L (23-29); Chloride 102 mEq/L (98-107); Glucose 105 mg/dL (70-105); Magnesium 2.1 mg/dL (1.6-2.6); Osmolality,Calculated 284 (280-300); Phosphorous 2.6 mg/dL (2.7-4.5); Potassium 3.6 mEq/L (3.5-5.1); Sodium 135 mEq/L (136-145); eGFR For African Americans > 60 (> 60); eGFR For Non-African Americans > 60 (> 60)
[2020-12-13] MEDS: Ipratropium/Albuterol Neb 3 ML IH SCH ×2 (03:58→07:35)
[2020-12-13 04:13] LABS: Anisocytosis 1+ (Not Present); Hypochromasia Present (Not Present); Platelet Estimate Marked Decrease (Normal)
[2020-12-13] MEDS: *HR* OxyCODONE Immed Rel 5 MG TABLET PO PRN (05:59)
[2020-12-13] MEDS: predniSONE 20 MG TABLET PO SCH (08:07)
[2020-12-13] MEDS: Acyclovir 200 MG CAPSULE PO SCH (08:07)
[2020-12-13] MEDS: Zinc Sulfate 220 MG CAPSULE PO SCH (08:07)
[2020-12-13] MEDS: Metoprolol XL (24 HR) Succ 25 MG TAB.ER.24H PO SCH (08:07)
[2020-12-13] MEDS: lisinopriL 5 MG TABLET PO SCH (08:08)
[2020-12-13] MEDS: Sennosides 8.6 MG TABLET PO SCH (08:08)
[2020-12-13] MEDS: Apixaban 5 MG TABLET PO SCH (08:12)
[2020-12-13 08:29] VITALS: BP 126/91; PULSE 103; TEMP 98.2; O2SAT 92
[2020-12-13] MEDS ORDERED: levoFLOXacin 750 MG TABLET PO SCH (09:00)
[2020-12-13] MEDS ORDERED: Furosemide 20 MG TABLET PO SCH (09:00)
== END 2020-12-13 11:06 | disposition home or self-care (01) | DRG 720 ==
LOC: EMEROOARM 01:52 → 2NENU 01:52 → SUATTDRO 08:18 → 2NENU 08:43
PROVIDERS: ADMIT Internal Medicine; ATTEND Internal Medicine

== ENCOUNTER 2021-02-18 20:56 | Inpatient (IN) ==
[2021-02-18] MEDS ORDERED: Ipratropium/Albuterol Neb 3 ML IH ONE (22:44)
[2021-02-18] MEDS ORDERED: predniSONE 20 MG TABLET PO ONE (22:45)
[2021-02-18] MEDS ORDERED: Isovue-370 500 ML BOTTLE IVP ONE (22:45)
[2021-02-18 22:50] LABS: Eosinophils % 0.2 %; Hemoglobin 7.7 g/dL (11.5-15.4); Immature Granulocytes % 0.5 % (0-4); Red Cell Distribution Width 17.1 % (11.5-14.5)
[2021-02-18 22:51] LABS: Immature Platelets 2.5 % (1.1-6.1); Lymphocytes # 1.2 K/mcL (0.6-4.6); Lymphocytes % 28.2 %; Mean Corpuscular HGB Conc 33.5 g/dL (31.6-35.5); Mean Corpuscular Hemoglobin 29.8 pg (28.0-33.3); Mean Corpuscular Volume 89.1 fL (83.0-100.0); Monocytes # 0.7 K/mcL (0.0-1.3); Monocytes % 15.2 %; Neutrophils # 2.4 K/mcL (1.6-8.9); Red Blood Count 2.58 M/mcL (3.82-4.97); Segmented Neutrophils % 55.9 %; White Blood Count 4.3 K/mcL (4.3-11.1)
[2021-02-18 23:11] LABS: BUN/Creatinine Ratio 19 (6-26); Blood Urea Nitrogen 15 mg/dL (6-20); Calcium 8.2 mg/dL (8.6-10.3); Carbon Dioxide 26 mEq/L (23-29); Chloride 96 mEq/L (98-107); Glucose 98 mg/dL (70-105); Osmolality,Calculated 271 (280-300); Potassium 3.9 mEq/L (3.5-5.1); Sodium 130 mEq/L (136-145); eGFR For African Americans > 60 (> 60); eGFR For Non-African Americans > 60 (> 60)
[2021-02-18 23:13] LABS: Platelet Count 38 K/mcL (140-400)
[2021-02-18] MEDS ORDERED: Aspirin 81 MG TAB.CHEW PO ONE (23:25)
[2021-02-18 23:29] LABS: Anisocytosis 1+ (Not Present); Platelet Estimate Decreased (Normal)
[2021-02-19] MEDS ORDERED: Ondansetron 4 MG/2 ML VIAL IVP PRN (02:39)
[2021-02-19] MEDS ORDERED: Naloxone 0.4 MG/ML INJ IVP PRN (02:39)
[2021-02-19 02:49] LABS: Adenovirus DETECTED (Not Detect); Bordetella Pertussis Not Detected (Not Detect); Chlamydophila pneumoniae Not Detected (Not Detect); Coronavirus 229E Not Detected (Not Detect); Coronavirus HKU1 Not Detected (Not Detect); Coronavirus NL63 Not Detected (Not Detect); Coronavirus OC43 Not Detected (Not Detect); Human Metapneumovirus Not Detected (Not Detect); Human Rhinovirus/Enterovirus DETECTED (Not Detect); Influenza A Subtype 2009 H1 Not Detected (Not Detect); Influenza B Not Detected (Not Detect); Mycoplasma pneumoniae Not Detected (Not Detect); Parainfluenza Virus 1 Not Detected (Not Detect); Parainfluenza Virus 2 Not Detected (Not Detect); Parainfluenza Virus 3 Not Detected (Not Detect); Parainfluenza Virus 4 Not Detected (Not Detect); Respiratory Syncytial Virus Not Detected (Not Detect); SARS-CoV-2 Not Detected (Not Detect)
[2021-02-19] MEDS: Budesonide/Formoterol 160/4.5 1 PUFF INH IH SCH ×3 (03:31→20:40)
[2021-02-19] MEDS: Ipratropium/Albuterol Neb 3 ML IH SCH ×3 (03:32→11:22)
[2021-02-19 04:59] LABS: Eosinophils % 0.3 %
[2021-02-19 05:01] LABS: Basophils % 0.3 %; Hematocrit 22.5 % (35.3-44.9); Hemoglobin 7.4 g/dL (11.5-15.4); Immature Granulocytes % 0.3 % (0-4); Immature Platelets 2.2 % (1.1-6.1); Lymphocytes # 0.6 K/mcL (0.6-4.6); Lymphocytes % 16.3 %; Mean Corpuscular HGB Conc 32.9 g/dL (31.6-35.5); Mean Corpuscular Hemoglobin 29.5 pg (28.0-33.3); Mean Corpuscular Volume 89.6 fL (83.0-100.0); Mean Platelet Volume 10.2 fL (9.4-12.4); Monocytes # 0.6 K/mcL (0.0-1.3); Monocytes % 18.7 %; Neutrophils # 2.2 K/mcL (1.6-8.9); Red Blood Count 2.51 M/mcL (3.82-4.97); Segmented Neutrophils % 64.1 %; White Blood Count 3.4 K/mcL (4.3-11.1)
[2021-02-19 05:05] LABS: Platelet Count 33 K/mcL (140-400)
[2021-02-19 05:18] LABS: BUN/Creatinine Ratio 19 (6-26); Blood Urea Nitrogen 13 mg/dL (6-20); Calcium 8.2 mg/dL (8.6-10.3); Carbon Dioxide 27 mEq/L (23-29); Chloride 99 mEq/L (98-107); Glucose 103 mg/dL (70-105); Osmolality,Calculated 274 (280-300); Phosphorous 4.4 mg/dL (2.7-4.5); Potassium 4.3 mEq/L (3.5-5.1); Sodium 132 mEq/L (136-145); eGFR For African Americans > 60 (> 60); eGFR For Non-African Americans > 60 (> 60)
[2021-02-19 05:25] LABS: Anisocytosis 1+ (Not Present); Platelet Estimate Marked Decrease (Normal)
[2021-02-19] MEDS: Azithromycin 500 MG in 0.9 % Sodium Chloride 250 ML IVPB SCH (07:17)
[2021-02-19] MEDS: MethylPREDNISolone 40 MG/ML VIAL IVP SCH ×3 (08:32→23:25)
[2021-02-19] MEDS: cefTRIAXone 1,000 MG in Water for inj. (sterile) 10 ML IVP SCH (08:34)
[2021-02-19] MEDS: Levalbuterol Neb 1.25 MG/3 ML IH SCH ×2 (16:00→20:37)
[2021-02-19] MEDS: GuaiFENesin Liq 200 MG/10 ML UDC PO PRN ×2 (17:25→23:25)
[2021-02-19] MEDS: *HR* OxyCODONE Immed Rel 5 MG TABLET PO PRN ×2 (17:25→23:25)
[2021-02-19] MEDS: Pregabalin 25 MG CAPSULE PO SCH (23:24)
[2021-02-20] MEDS: Melatonin 3 MG TABLET PO SCH ×2 (00:41→20:55)
[2021-02-20] MEDS: Levalbuterol Neb 1.25 MG/3 ML IH SCH ×4 (03:34→19:51)
[2021-02-20] MEDS: Benzonatate 100 MG CAPSULE PO PRN ×2 (03:42→20:54)
[2021-02-20] MEDS: Azithromycin 500 MG in 0.9 % Sodium Chloride 250 ML IVPB SCH (05:23)
[2021-02-20] MEDS: GuaiFENesin Liq 200 MG/10 ML UDC PO PRN ×3 (05:28→19:23)
[2021-02-20] MEDS: *HR* OxyCODONE Immed Rel 5 MG TABLET PO PRN ×3 (05:28→19:23)
[2021-02-20 06:22] LABS: Hemoglobin 7.6 g/dL (11.5-15.4); Monocytes % 6.2 %; Red Cell Distribution Width 17.2 % (11.5-14.5)
[2021-02-20 06:24] LABS: Hematocrit 23.1 % (35.3-44.9); Immature Granulocytes % 1.3 % (0-4); Lymphocytes % 20.2 %; Mean Corpuscular HGB Conc 32.9 g/dL (31.6-35.5); Mean Corpuscular Hemoglobin 29.6 pg (28.0-33.3); Mean Corpuscular Volume 89.9 fL (83.0-100.0); Mean Platelet Volume 9.7 fL (9.4-12.4); Monocytes # 0.3 K/mcL (0.0-1.3); Neutrophils # 3.4 K/mcL (1.6-8.9); Red Blood Count 2.57 M/mcL (3.82-4.97); Segmented Neutrophils % 72.3 %; White Blood Count 4.7 K/mcL (4.3-11.1)
[2021-02-20 06:43] LABS: Platelet Count 25 K/mcL (140-400)
[2021-02-20 06:45] LABS: BUN/Creatinine Ratio 22 (6-26); Blood Urea Nitrogen 17 mg/dL (6-20); Calcium 7.7 mg/dL (8.6-10.3); Carbon Dioxide 23 mEq/L (23-29); Chloride 99 mEq/L (98-107); Glucose 154 mg/dL (70-105); Osmolality,Calculated 275 (280-300); Phosphorous 3.6 mg/dL (2.7-4.5); Potassium 4.1 mEq/L (3.5-5.1); Sodium 130 mEq/L (136-145); eGFR For African Americans > 60 (> 60); eGFR For Non-African Americans > 60 (> 60)
[2021-02-20 07:03] LABS: Anisocytosis 1+ (Not Present); Platelet Estimate Marked Decrease (Normal)
[2021-02-20] MEDS: cefTRIAXone 1,000 MG in Water for inj. (sterile) 10 ML IVP SCH (09:17)
[2021-02-20] MEDS: Cholecalciferol (D-3) 1,000 UNIT (25MCG) TABLET PO SCH ×2 (09:17→21:19)
[2021-02-20] MEDS: Zinc Sulfate 220 MG CAPSULE PO SCH ×2 (09:18→20:54)
[2021-02-20] MEDS: Magnesium Oxide 400 MG TABLET PO SCH ×2 (09:18→20:55)
[2021-02-20] MEDS: MethylPREDNISolone 40 MG/ML VIAL IVP SCH (09:18)
[2021-02-20] MEDS: Pregabalin 25 MG CAPSULE PO SCH ×2 (09:19→20:54)
[2021-02-20] MEDS: Budesonide/Formoterol 160/4.5 1 PUFF INH IH SCH ×2 (11:40→19:51)
[2021-02-20] MEDS ORDERED: tiZANidine 4 MG TABLET PO PRN (13:01)
[2021-02-20] MEDS ORDERED: MethylPREDNISolone 40 MG/ML VIAL IVP SCH (18:00)
[2021-02-20] MEDS: Acyclovir 200 MG CAPSULE PO SCH (20:54)
[2021-02-20] MEDS ORDERED: Melatonin 3 MG TABLET PO SCH (21:00)
[2021-02-20] MEDS ORDERED: OLANZapine 5 MG TAB.RAPDIS PO SCH (21:00)
[2021-02-21] MEDS: Levalbuterol Neb 1.25 MG/3 ML IH SCH ×2 (03:32→09:33)
[2021-02-21] MEDS: Azithromycin 500 MG in 0.9 % Sodium Chloride 250 ML IVPB SCH (04:57)
[2021-02-21 06:28] VITALS: BP 130/86; PULSE 91; TEMP 98.2
[2021-02-21] MEDS: Zinc Sulfate 220 MG CAPSULE PO SCH (08:12)
[2021-02-21] MEDS: cefTRIAXone 1,000 MG in Water for inj. (sterile) 10 ML IVP SCH (08:12)
[2021-02-21] MEDS: Cholecalciferol (D-3) 1,000 UNIT (25MCG) TABLET PO SCH (08:12)
[2021-02-21] MEDS: Acyclovir 200 MG CAPSULE PO SCH (08:12)
[2021-02-21] MEDS: Magnesium Oxide 400 MG TABLET PO SCH (08:12)
[2021-02-21] MEDS: Pregabalin 25 MG CAPSULE PO SCH (08:14)
[2021-02-21] MEDS ORDERED: predniSONE 20 MG TABLET PO SCH (09:00)
[2021-02-21] MEDS: Budesonide/Formoterol 160/4.5 1 PUFF INH IH SCH (09:34)
[2021-02-21 09:55] VITALS: O2SAT 96
[2021-02-21] MEDS: GuaiFENesin Liq 200 MG/10 ML UDC PO PRN (10:11)
[2021-02-21 10:18] LABS: Hematocrit 22.2 % (35.3-44.9); Hemoglobin 7.4 g/dL (11.5-15.4); Mean Corpuscular HGB Conc 33.3 g/dL (31.6-35.5); Red Cell Distribution Width 17.3 % (11.5-14.5)
[2021-02-21 10:20] LABS: Immature Platelets 2.2 % (1.1-6.1); Mean Corpuscular Hemoglobin 29.8 pg (28.0-33.3); Mean Corpuscular Volume 89.5 fL (83.0-100.0); Mean Platelet Volume 9.7 fL (9.4-12.4); Red Blood Count 2.48 M/mcL (3.82-4.97); White Blood Count 4.9 K/mcL (4.3-11.1)
[2021-02-21 10:22] LABS: Platelet Count 55 K/mcL (140-400)
[2021-02-21 10:35] LABS: BUN/Creatinine Ratio 29 (6-26); Blood Urea Nitrogen 18 mg/dL (6-20); Calcium 7.4 mg/dL (8.6-10.3); Carbon Dioxide 25 mEq/L (23-29); Chloride 100 mEq/L (98-107); Glucose 107 mg/dL (70-105); Magnesium 2.1 mg/dL (1.6-2.6); Osmolality,Calculated 274 (280-300); Phosphorous 2.6 mg/dL (2.7-4.5); Potassium 4.3 mEq/L (3.5-5.1); Sodium 131 mEq/L (136-145); eGFR For African Americans > 60 (> 60); eGFR For Non-African Americans > 60 (> 60)
[2021-02-21 10:52] LABS: Lymphocytes # 0.7 K/mcL (0.6-4.6); Monocytes # 0.3 K/mcL (0.0-1.3); Neutrophils # 3.8 K/mcL (1.6-8.9)
[2021-02-21 10:53] LABS: Hypochromasia Present (Not Present); Platelet Estimate Decreased (Normal)
[2021-02-21 11:19] LABS: Reactive Lymphocytes Present (Not Present)
== END 2021-02-21 11:40 | disposition home or self-care (01) | DRG 139 ==
LOC: EMEROOARM 20:56 → 3BNU 20:56 → SUATTDRO 02-19 06:08
PROVIDERS: ADMIT Family Medicine; ATTEND Internal Medicine

== ENCOUNTER 2021-03-30 12:59 | Observation (INO) ==
[2021-03-30] MEDS ORDERED: Phenylephrine Nasal 0.5% 15 ML BOTTLE NS ONE (13:56)
[2021-03-30 14:48] LABS: Hemoglobin 6.8 g/dL (11.5-15.4); INR 1.2; Immature Platelets 6.3 % (1.1-6.1); Mean Corpuscular HGB Conc 32.4 g/dL (31.6-35.5); Mean Corpuscular Hemoglobin 29.7 pg (28.0-33.3); Mean Corpuscular Volume 91.7 fL (83.0-100.0); Mean Platelet Volume 10.1 fL (9.4-12.4); Monocytes # 0.2 K/mcL (0.0-1.3); Prothrombin Time 12.9 Seconds (9.4-12.1); Red Blood Count 2.29 M/mcL (3.82-4.97); White Blood Count 2.9 K/mcL (4.3-11.1)
[2021-03-30 15:12] LABS: BUN/Creatinine Ratio 26 (6-26); Blood Urea Nitrogen 18 mg/dL (6-20); Carbon Dioxide 26 mEq/L (23-29); Chloride 102 mEq/L (98-107); Glucose 101 mg/dL (70-105); Osmolality,Calculated 278 (280-300); Potassium 3.9 mEq/L (3.5-5.1); Sodium 133 mEq/L (136-145); eGFR For African Americans > 60 (> 60); eGFR For Non-African Americans > 60 (> 60)
[2021-03-30 15:17] LABS: Platelet Count 8 K/mcL (140-400)
[2021-03-30 15:34] LABS: Lymphocytes # 0.7 K/mcL (0.6-4.6); Platelet Estimate Marked Decrease (Normal); Reactive Lymphocytes Present (Not Present)
[2021-03-30] MEDS ORDERED: 0.9 % Sodium Chloride 500 ML ONE (16:00)
[2021-03-30 16:32] LABS: Influenza A PCR Negative (Negative); Influenza B PCR Negative (Negative); Resp. Syncytial Virus PCR Negative (Negative)
[2021-03-30 16:38] LABS: SARS-CoV-2 by PCR (In House) Negative (Negative)
[2021-03-30] MEDS ORDERED: Melatonin 3 MG TABLET PO PRN (17:15)
[2021-03-30] MEDS ORDERED: Ondansetron ODT 4 MG TAB.RAPDIS SL PRN (17:15)
[2021-03-30] MEDS ORDERED: Acetaminophen 325 MG TABLET PO PRN (17:15)
[2021-03-30] MEDS ORDERED: Naloxone 0.4 MG/ML INJ IVP PRN (17:15)
[2021-03-30] MEDS ORDERED: Oxymetazoline Nasal SPRAY BOTTLE 15ML NS PRN (17:31)
[2021-03-30] MEDS ORDERED: Nicotine 2 MG GUM BC PRN (18:12)
[2021-03-30] MEDS ORDERED: Saline Nasal Spray 44 ML BOTTLE NS PRN (18:18)
[2021-03-30] MEDS ORDERED: Furosemide 20 MG/2 ML VIAL IVP ONE (19:08)
[2021-03-30] MEDS ORDERED: 0.9 % Sodium Chloride 250 ML ONE ×2 (20:13→22:24)
[2021-03-30 20:51] LABS: Hemoglobin 6.3 g/dL (11.5-15.4)
[2021-03-30 20:53] LABS: Hematocrit 19.2 % (35.3-44.9); Immature Platelets 1.4 % (1.1-6.1); Mean Corpuscular HGB Conc 32.8 g/dL (31.6-35.5); Mean Corpuscular Hemoglobin 29.6 pg (28.0-33.3); Mean Corpuscular Volume 90.1 fL (83.0-100.0); Mean Platelet Volume 8.8 fL (9.4-12.4); Red Blood Count 2.13 M/mcL (3.82-4.97); Red Cell Distribution Width 15.9 % (11.5-14.5); White Blood Count 2.4 K/mcL (4.3-11.1)
[2021-03-31 03:43] VITALS: TEMP 98.2; O2SAT 97
[2021-03-31] MEDS ORDERED: *HR* OxyCODONE Immed Rel 5 MG TABLET PO PRN (06:28)
[2021-03-31 07:16] VITALS: BP 131/84; PULSE 73
[2021-03-31 07:31] LABS: Hematocrit 24.3 % (35.3-44.9); Hemoglobin 8.3 g/dL (11.5-15.4); Immature Platelets 1.5 % (1.1-6.1); Mean Corpuscular HGB Conc 34.2 g/dL (31.6-35.5); Mean Corpuscular Volume 87.7 fL (83.0-100.0); Mean Platelet Volume 9.7 fL (9.4-12.4); Red Blood Count 2.77 M/mcL (3.82-4.97); Red Cell Distribution Width 15.4 % (11.5-14.5); White Blood Count 2.6 K/mcL (4.3-11.1)
[2021-03-31 07:32] LABS: BUN/Creatinine Ratio 26 (6-26); Blood Urea Nitrogen 19 mg/dL (6-20); Calcium 7.4 mg/dL (8.6-10.3); Carbon Dioxide 25 mEq/L (23-29); Chloride 105 mEq/L (98-107); Glucose 76 mg/dL (70-105); Osmolality,Calculated 283 (280-300); Potassium 3.7 mEq/L (3.5-5.1); Sodium 136 mEq/L (136-145); eGFR For African Americans > 60 (> 60); eGFR For Non-African Americans > 60 (> 60)
== END 2021-03-31 11:05 | disposition home or self-care (01) ==
LOC: 2ANU 12:59 → EMEROOARM 12:59 → SUATTDRO 17:27 → 2ANU 17:53
PROVIDERS: ADMIT Pharmacist; ATTEND Internal Medicine